=== PATIENT | female | born 1985 | race Hispanic/Latino ===

== ENCOUNTER 2017-09-23 15:30 | Inpatient (IN) | payer MEDICAID ==
[2017-09-23 15:40] VITALS: BMI 27.4
[2017-09-23] MEDS ORDERED: Sodium Chloride 0.9% 1,000 ML IV STA (15:47)
[2017-09-23 16:25] LABS: URINE BILIRUBIN MODERATE (NEGATIVE); URINE BLOOD LARGE (NEGATIVE); URINE GLUCOSE (UA) NEGATIVE (NEGATIVE); URINE LEUKOCYTE ESTERASE SMALL Leu/uL (NEGATIVE); URINE PROTEIN NEGATIVE mg/dL (<30 mg/dL)
[2017-09-23 16:27] LABS: BASO # 0.01 K/mm3 (0.0-2.0); BASO % 0.3 % (0.0-3.0); EOS # 0.2 (0.0-0.7); EOS % 6.2 % (1.5-5.0); GRAN # 1.26 (1.4-6.5); GRAN % 40.9 % (50.0-68.0); HEMOGLOBIN 13.4 g/dL (12.0-16.0); LYMPH # 1.4 (1.2-3.4); LYMPH % 45.8 % (22.0-35.0); MEAN CELL VOLUME 75.1 fl (80.0-105.0); MEAN CORPUSCULAR HEMOGLOBIN 24.5 pg (25.0-35.0); MEAN CORPUSCULAR HGB CONC 32.7 g/dl (31.0-37.0); MEAN PLATELET VOLUME 11.5 fl (7.0-11.0); MONO # 0.2 (0.1-0.6); MONO % 6.8 % (1.0-6.0); RBC 5.46 10^6/uL (3.5-6.1); RED CELL DISTRIBUTION WIDTH 14.7 % (11.5-14.5); WHITE BLOOD COUNT 3.1 10^3/ul (4.5-11.0)
[2017-09-23 16:30] LABS: URINE APPEARANCE SL CLOUDY (CLEAR); URINE COLOR DARK YELLOW (YELLOW)
[2017-09-23 16:31] LABS: INR 1.09 (0.93-1.08); PARTIAL THROMBOPLASTIN TIME 27.6 Seconds (25.1-36.5); PROTHROMBIN TIME 12.5 SECONDS (9.4-12.5)
[2017-09-23 16:32] LABS: ALB/GLOB RATIO 1.3 (1.1-1.8); ALBUMIN 4.8 g/dL (3.0-4.8); BLOOD UREA NITROGEN 10 mg/dL (7-21); CALCIUM 9.6 mg/dL (8.4-10.5); GFR AFRICAN-AMERICAN > 60; GFR NON-AFRICAN AMERICAN > 60; LIPASE 188 U/L (23-300)
[2017-09-23 16:41] LABS: URINE AMORPHOUS SEDIMENT FEW; URINE BACTERIA FEW (NEG)
[2017-09-23 16:51] LABS: ALT/SGPT 1603 U/L (7-56); AST/SGOT 1017 U/L (14-36)
--- NOTE | 2017-09-23 17:08 | ED PDOC ---
Arrival/HPI - General Chief Complaint: Abdominal Pain Time Seen by Provider: 09/23/17 15:44 Historian: Patient - History of Present Illness Narrative History of Present Illness (Text): 09/23/17 17:05 32yo female with no past medical history who present with complaint of severe RUQ abdominal pain that radiates to her right upper and lower back pain x days. States pain became worse today. Pain is associated with nausea. Also report right leg pain. States pain is constant. No relieving/exacerbating factors. Denies nausea, vomiting, diarrhea, constipation, urinary symptoms, chest pain, SOB, recent travel, sick contact, any other complaint. Past Medical History - Provider Review Nursing Documentation Reviewed: Yes - Cardiac Hx Cardiac Disorders: No - Pulmonary Hx Respiratory Disorders: No - Neurological Hx Neurological Disorder: No - HEENT Hx HEENT Disorder: No - Hematological/Oncological Hx Blood Disorders: No - Integumentary Hx Dermatological Disorder: No - Musculoskeletal/Rheumatological Hx Musculoskeletal Disorders: Yes Other/Comment: Polio - Psychiatric Hx Substance Use: No - Surgical History Hx Section: Yes - Anesthesia Hx Anesthesia: Yes Family/Social History - Physician Review Nursing Documentation Reviewed: Yes Family/Social History: Unknown Family HX Smoking Status: Smoker Currrent Status Unknown Hx Alcohol Use: No Hx Substance Use: No Allergies/Home Meds Allergies/Adverse Reactions: Allergies No Known Allergies Allergy (Verified 09/23/17 15:40) Home Medications: Home Meds Medication Instructions Recorded Confirmed No Known Home Med 09/23/17 09/23/17 Review of Systems - Physician Review All systems were reviewed & negative as marked: Yes - Review of Systems Constitutional: Normal Eyes: Normal ENT: Normal Respiratory: Normal Cardiovascular: Normal Gastrointestinal: Abdominal Pain, Nausea. absent: Constipation, Diarrhea, Vomiting, Hematochezia, Hematemesis Genitourinary Female: Normal Musculoskeletal: Back Pain Skin: Normal Neurological: Normal Endocrine: Normal Hemo/Lymphatic: Normal Psychiatric: Normal Physical Exam Vital Signs Reviewed: Yes Vital Signs Temp Pulse Resp BP Pulse Ox 09/23/17 18:50 88 18 112/73 98 09/23/17 15:31 98 F 78 18 128/79 100 Temperature: Afebrile Blood Pressure: Normal Pulse: Regular Respiratory Rate: Normal Appearance: Positive for: Well-Appearing, Non-Toxic, Comfortable Pain Distress: None Mental Status: Positive for: Alert and Oriented X 3 - Systems Exam Head: Present: Atraumatic, Normocephalic Pupils: Present: PERRL Extroacular Muscles: Present: EOMI Conjunctiva: Present: Normal Mouth: Present: Moist Mucous Membranes Neck: Present: Normal Range of Motion Respiratory/Chest: Present: Clear to Auscultation, Good Air Exchange. No: Respiratory Distress, Accessory Muscle Use Cardiovascular: Present: Regular Rate and Rhythm, Normal S1, S2. No: Murmurs Abdomen: Present: Tenderness (RUQ), Normal Bowel Sounds, Guarding (Voluntary), McBurney's Point Tender, Other (soft). No: Distention, Peritoneal Signs, Rebound, Rovsing's Sign Present Back: Present: Paraspinal Tenderness (Right parathoracic/paralumbar tenderness) . No: CVA Tenderness, Midline Tenderness, Pain with Leg Raise Upper Extremity: Present: Normal Inspection. No: Cyanosis, Edema Lower Extremity: Present: Normal Inspection. No: Edema Neurological: Present: GCS=15, CN II-XII Intact, Speech Normal Skin: Present: Warm, Dry, Normal Color. No: Rashes Psychiatric: Present: Alert, Oriented x 3, Normal Insight, Normal Concentration Medical Decision Making ED Course and Treatment: 09/23/17 19:15 Pt presented for stated history, afebrile and in mild discomfort secondary to pain. Her pain was controlled with medication in emergency department Lab was noted with leukopenia and abnormal LFT with elevate alk phos. Hepatitis panel was ordered Abdominal US was ordered to r/o cholelithiaisis Abdominal Us LIVER: Measures 16.6 cm. Normal echogenicity of the liver parenchyma. No mass. No intrahepatic bile duct dilatation. GALLBLADDER: The gallbladder is completely filled with stones. There is gallbladder wall thickening/edema. The sonographic Cardoza's sign is positive. COMMON BILE DUCT: Measures 3.4 mm. No stones. No dilatation. PANCREAS: Unremarkable as visualized. No mass. No ductal dilatation. RIGHT KIDNEY: Measures 11.2cm. Normal echogenicity. No calculus, mass, or hydronephrosis. LEFT KIDNEY: Measures 11.2cm. Normal echogenicity. No calculus or mass. There is mild hydronephrosis. SPLEEN: Normal in size and contour. No mass. AORTA: No aneurysmal dilatation. IVC: Unremarkable. OTHER FINDINGS: None. IMPRESSION: Multiple gallstones completely filling the gallbladder, wall thickening/ edema and positive sonographic Cardoza's sign in the appropriate clinical setting may represent acute calculus cholecystitis. Clinical follow-up is advised. Mild left hydronephrosis. No sonographic evidence for nephrolithiasis. Zosyn and Flagyl was ordered PT will need admission for IV abx and possible cholecystectomy Case was DW Dr. Smith and he accepted pt for admission Result and plan was DW the pt and she agreed. Chest X-Ray NAD - Lab Interpretations Lab Results: 09/23/17 15:46 09/23/17 15:46 Lab Results 09/23/17 17:17: Acetaminophen < 10.0 L 09/23/17 17:17: Alcohol, Quantitative < 10 09/23/17 15:46: Sodium 143, Potassium 4.3, Chloride 105, Carbon Dioxide 25, Anion Gap 17, BUN 10, Creatinine 0.5 L, Est GFR ( Amer) > 60, Est GFR ( Non-Af Amer) > 60, Random Glucose 101, Calcium 9.6, Magnesium 2.3 H, Total Bilirubin 2.6 H, AST 1017 H, ALT 1603 H, Alkaline Phosphatase 186 H, Total Protein 8.6 H, Albumin 4.8, Globulin 3.8, Albumin/Globulin Ratio 1.3, Lipase 188 09/23/17 15:46: Urine Color Dark yellow, Urine Appearance Sl cloudy, Urine pH 7.0, Ur Specific [place] 1.015, Urine Protein Negative, Urine Glucose (UA) Negative, Urine Ketones Negative, Urine Blood Large H, Urine Nitrate Negative, Urine Bilirubin Moderate H, Urine Urobilinogen 1.0 H, Ur Leukocyte Esterase Small H, Urine RBC 5 - 10, Urine WBC 5 - 10, Ur Epithelial Cells 3 - 4, Amorphous Sediment Few, Urine Bacteria Few 09/23/17 15:46: PT 12.5, INR 1.09 H, APTT 27.6 09/23/17 15:46: WBC 3.1 L, RBC 5.46, Hgb 13.4, Hct 41.0, MCV 75.1 L, MCH 24.5 L , MCHC 32.7, RDW 14.7 H, Plt Count 237, MPV 11.5 H, Gran % 40.9 L, Lymph % (Auto ) 45.8 H, [place] % (Auto) 6.8 H, Eos % (Auto) 6.2 H, Baso % (Auto) 0.3, Gran # 1.26 L, Lymph # (Auto) 1.4, [place] # (Auto) 0.2, Eos # (Auto) 0.2, Baso # (Auto) 0.01 - RAD Interpretation Radiology Orders: 09/23/17 15:47 ABDOMEN COMPLETE [US] Stat - Medication Orders Current Medication Orders: Metronidazole (Flagyl) 500 mg in 100 mls @ 100 mls/hr IVPB Q8 ALEX PRN Reason: Protocol Ceftriaxone Sodium (Rocephin 1 Gram Ivpb) 1 gm in 100 mls @ 100 mls/hr IVPB DAILY ALEX PRN Reason: Protocol Sodium Chloride (Sodium Chloride 0.9%) 1,000 mls @ 125 mls/hr IV .Q8H ALEX Last Admin: 09/23/17 18:15 Dose: 125 mls/hr eMAR Start Stop Document 09/23/17 18:15 [place] (Rec: 09/23/17 18:15 [place] [email or web address] Intravenous Solution Start Date 09/23/17 Start Time 18:15 Morphine Sulfate (Morphine) 2 mg IVP Q4H PRN PRN Reason: Pain, severe (8-10) Morphine Sulfate (Morphine) 1 mg IVP Q4H PRN PRN Reason: Pain, moderate (4-7) Ondansetron HCl (Zofran Inj) 4 mg IVP Q4H PRN PRN Reason: Nausea/Vomiting Pantoprazole Sodium (Protonix Inj) 40 mg IVP Q12 ALEX Discontinued Medications Diphenhydramine HCl (Benadryl) 25 mg IVP STAT STA Stop: 09/23/17 18:40 Last Admin: 09/23/17 19:13 Dose: Not Given Non-Admin Reason: Patient Refused Sodium Chloride (Sodium Chloride 0.9%) 1,000 mls @ 1,000 mls/hr IV .Q1H STA Stop: 09/23/17 16:46 Last Admin: 09/23/17 16:12 Dose: 1,000 mls/hr eMAR Start Stop Document 09/23/17 16:12 LA (Rec: 09/23/17 16:13 [email or web address] Intravenous Solution Start Date 09/23/17 Start Time 16:13 End Date 09/23/17 End time 17:13 Total Infusion Time 60 Metronidazole (Flagyl) 500 mg in 100 mls @ 100 mls/hr IVPB STAT STA PRN Reason: Protocol Stop: 09/23/17 18:40 Last Admin: 09/23/17 18:56 Dose: 100 mls/hr eMAR Start Stop Document 09/23/17 18:56 LA (Rec: 09/23/17 18:56 [email or web address] Intravenous Solution Start Date 09/23/17 Start Time 18:56 End Date 09/23/17 End time 19:56 Total Infusion Time 60 Piperacillin Sod/Tazobactam Sod (Zosyn 3.375 In Ns 100ml) 100 mls @ 200 mls/hr IVPB STAT STA PRN Reason: Protocol Stop: 09/23/17 18:10 Last Admin: 09/23/17 18:17 Dose: 200 mls/hr eMAR Start Stop Document 09/23/17 18:17 LA (Rec: 09/23/17 18:18 [place] [email or web address] Intravenous Solution Start Date 09/23/17 Start Time 18:18 End Date 09/23/17 End time 18:48 Total Infusion Time 30 Ketorolac Tromethamine (Toradol) 30 mg IVP STAT STA Stop: 09/23/17 15:48 Last Admin: 09/23/17 16:15 Dose: 30 mg AVA Pain Assessment Document 09/23/17 16:15 LA (Rec: 09/23/17 16:19 [email or web address] Pain Reassessment Is this a pain reassessment? No Sleep Is patient sleeping during reassessment? No Presence of Pain Presence of Pain Yes Pain Scale Used Pain Scale Used Numeric Location Left, Right or Bilateral Right Upper or Lower Upper Pain Location Body Site Abdomen Description Description Constant Intensity of Pain at present 7 Pain Behavior Guarding IVP Administration Document 09/23/17 16:15 LA (Rec: 09/23/17 16:19 [email or web address] Charges for Administration # of IVP Administrations 1 Re-Assess: AVA Pain Assessment Document 09/23/17 17:15 LA (Rec: 09/23/17 18:14 [place] [email or web address] Pain Reassessment Is this a pain reassessment? Yes Sleep Is patient sleeping during reassessment? No Presence of Pain Presence of Pain Yes Pain Scale Used Pain Scale Used Numeric Location Left, Right or Bilateral Right Pain Location Body Site Abdomen Description Intensity of Pain at present 6 Ondansetron HCl (Zofran Inj) 4 mg IVP STAT STA Stop: 09/23/17 15:48 Last Admin: 09/23/17 16:20 Dose: 4 mg IVP Administration Document 09/23/17 16:20 LA (Rec: 09/23/17 16:20 [place] [email or web address] Charges for Administration # of IVP Administrations 1 Disposition/Present on Arrival - Present on Arrival Any Indicators Present on Arrival: No History of DVT/PE: No History of Uncontrolled Diabetes: No Urinary Catheter: No History of Decub. Ulcer: No History Surgical Site Infection Following: None - Disposition Have Diagnosis and Disposition been Completed?: Yes Diagnosis: Acute cholecystitis, Abnormal LFTs, UTI (urinary tract infection) Disposition: HOSPITALIZED Disposition Time: 17:40 Patient Plan: Admission Patient Problems: Current Active Problems Problem Status Onset Abnormal LFTs Acute Acute cholecystitis Acute Condition: STABLE
--- NOTE | 2017-09-23 17:23 | CP.PCM.HP ---
<Madyson Rosenbaum - Last Filed: 09/23/17 19:06> History of Present Illness - History of Present Illness History of Present Illness: 32 year old of [place] descent, female with a past medical history of gastritis diagnosed 2 months by EGD who presents with 2 days of nausea, RUQ abdominal pain that has been constant for the past two days. She tried taking a pain reliever at home without any improvement in her symptoms. She denies fever, chills, diarrhea, dysuria, chest pain, or pruritus. She states the pain is 101/ 10 in severity. In the past 3-4 years she had similar episodes that did not last longer than 5 minutes; however, this time it has been constant. She is from [place] and is visiting her mother. She reports taking lansoprazole for the past two months and stopped a few days. She denies any surgeries aside from 3 C-sections. She is a homemaker; denies alcohol, tobacco, or illicit drug use. She cannot recall the name of the pain medication she took prior to admission. Otherwise, 12 point review of systems in negative. PMH: EGD 2 months ago showing gastritis (patient has picture of the images on her phone) PSH: As above Allergies: Denies Social: as Above PMD: Denies Present on Admission - Present on Admission Any Indicators Present on Admission: No Review of Systems - Review of Systems All systems: reviewed and no additional remarkable complaints except (as per HPI ) Past Patient History - Past Social History Smoking Status: Smoker Currrent Status Unknown - CARDIAC Hx Cardiac Disorders: No - PULMONARY Hx Respiratory Disorders: No - NEUROLOGICAL Hx Neurological Disorder: No - HEENT Hx HEENT Problems: No - HEMATOLOGICAL/ONCOLOGICAL Hx Blood Disorders: No - INTEGUMENTARY Hx Dermatological Problems: No - MUSCULOSKELETAL/RHEUMATOLOGICAL Hx Musculoskeletal Disorders: Yes Other/Comment: Polio - PSYCHIATRIC Hx Substance Use: No - SURGICAL HISTORY Hx Section: Yes - ANESTHESIA Hx Anesthesia: Yes Meds Allergies/Adverse Reactions: Allergies Allergy/AdvReac Type Severity Reaction Status Date / Time No Known Allergies Allergy Verified 09/23/17 21:20 Physical Exam - Constitutional Appears: Non-toxic - Head Exam Head Exam: ATRAUMATIC, NORMOCEPHALIC - Eye Exam Eye Exam: EOMI, Normal appearance - ENT Exam ENT Exam: Mucous Membranes Moist - Neck Exam Neck exam: Positive for: Normal Inspection. Negative for: Thyromegaly - Respiratory Exam Respiratory Exam: Clear to Auscultation Bilateral, NORMAL BREATHING PATTERN - Cardiovascular Exam Cardiovascular Exam: RRR, +S1, +S2 Results - Vital Signs Recent Vital Signs: Last Vital Signs Temp 98 F 09/23/17 15:31 Pulse 78 09/23/17 15:31 Resp 18 09/23/17 15:31 BP 128/79 09/23/17 15:31 Pulse Ox 100 09/23/17 15:31 - Labs Result Diagrams: 09/23/17 15:46 09/23/17 15:46 Labs: Laboratory Results - last 24 hr 09/23/17 09/23/17 09/23/17 15:46 15:46 15:46 WBC 3.1 L RBC 5.46 Hgb 13.4 Hct 41.0 MCV 75.1 L MCH 24.5 L MCHC 32.7 RDW 14.7 H Plt Count 237 MPV 11.5 H Gran % 40.9 L Lymph % (Auto) 45.8 H [place] % (Auto) 6.8 H Eos % (Auto) 6.2 H Baso % (Auto) 0.3 Gran # 1.26 L Lymph # (Auto) 1.4 [place] # (Auto) 0.2 Eos # (Auto) 0.2 Baso # (Auto) 0.01 PT 12.5 INR 1.09 H APTT 27.6 Sodium Potassium Chloride Carbon Dioxide Anion Gap BUN Creatinine Est GFR ( Amer) Est GFR (Non-Af Amer) Random Glucose Calcium Magnesium Total Bilirubin AST ALT Alkaline Phosphatase Total Protein Albumin Globulin Albumin/Globulin Ratio Lipase Urine Color Dark yellow Urine Appearance Sl cloudy Urine pH 7.0 Ur Specific [place] 1.015 Urine Protein Negative Urine Glucose (UA) Negative Urine Ketones Negative Urine Blood Large H Urine Nitrate Negative Urine Bilirubin Moderate H Urine Urobilinogen 1.0 H Ur Leukocyte Esterase Small H Urine RBC 5 - 10 Urine WBC 5 - 10 Ur Epithelial Cells 3 - 4 Amorphous Sediment Few Urine Bacteria Few 09/23/17 15:46 WBC RBC Hgb Hct MCV MCH MCHC RDW Plt Count MPV Gran % Lymph % (Auto) [place] % (Auto) Eos % (Auto) Baso % (Auto) Gran # Lymph # (Auto) [place] # (Auto) Eos # (Auto) Baso # (Auto) PT INR APTT Sodium 143 Potassium 4.3 Chloride 105 Carbon Dioxide 25 Anion Gap 17 BUN 10 Creatinine 0.5 L Est GFR ( Amer) > 60 Est GFR (Non-Af Amer) > 60 Random Glucose 101 Calcium 9.6 Magnesium 2.3 H Total Bilirubin 2.6 H AST 1017 H ALT 1603 H Alkaline Phosphatase 186 H Total Protein 8.6 H Albumin 4.8 Globulin 3.8 Albumin/Globulin Ratio 1.3 Lipase 188 Urine Color Urine Appearance Urine pH Ur Specific [place] Urine Protein Urine Glucose (UA) Urine Ketones Urine Blood Urine Nitrate Urine Bilirubin Urine Urobilinogen Ur Leukocyte Esterase Urine RBC Urine WBC Ur Epithelial Cells Amorphous Sediment Urine Bacteria Assessment & Plan - Assessment and Plan (Free Text) Assessment: 32 year old of [place] descent, female with a past medical history of gastritis diagnosed 2 months by EGD who presents with 2 days of nausea, RUQ abdominal pain that has been constant for the past two days. 1) Elevated LFTs and RUQ pain - Multiple gallstones completely filling the gallbladder, wall thickening/ edema and positive sonographic Cardoza's sign in the appropriate clinical setting may represent acute calculus cholecystitis. Clinical follow-up is advised. Mild left hydronephrosis. No sonographic evidence for nephrolithiasis. - Ceftriaxone 1 gm q24h ALEX - Metronidazole 500 q8h ALEX - Morphine 2 mg q4h PRN - Morphine 1 mg q4h PRN - Zofran 4 mg q4h PRN - GI consulted - General Surgery Consulted - NPO after midnight except for meds - Acetaminophen level - Hepatitis panel - NPO past midnight - NS 125 mls/hr 2) Gastritis - Protonix 40 mg IVP BID 3) Pre-operative assessment - EKG - Chest X-ray 4) DVT prophylaxis - SCD Casr reviewed with Dr. Pedro Patient to follow up with PMD in [place] upon discharge - Date & Time Date: 09/23/17 Time: 19:18 <Mili Pedro - Last Filed: 09/24/17 18:35> Results - Vital Signs Recent Vital Signs: Last Vital Signs Temp 98.0 F 09/24/17 17:50 Pulse 81 09/24/17 17:50 Resp 19 09/24/17 17:50 BP 103/54 L 09/24/17 17:50 Pulse Ox 100 09/24/17 17:50 - Labs Result Diagrams: 09/24/17 06:00 09/24/17 06:00 Labs: Laboratory Results - last 24 hr 09/23/17 09/24/17 09/24/17 18:45 06:00 06:00 WBC 2.8 L* RBC 4.67 Hgb 11.5 L Hct 35.6 L MCV 76.2 L MCH 24.6 L MCHC 32.3 RDW 14.9 H Plt Count 189 MPV 11.5 H Gran % 32.8 L Lymph % (Auto) 49.8 H [place] % (Auto) 8.9 H Eos % (Auto) 7.8 H Baso % (Auto) 0.7 Gran # 0.92 L Lymph # (Auto) 1.4 [place] # (Auto) 0.3 Eos # (Auto) 0.2 Baso # (Auto) 0.02 Sodium 143 Potassium 3.9 Chloride 112 H Carbon Dioxide 23 Anion Gap 12 BUN 7 Creatinine 0.5 L Est GFR ( Amer) > 60 Est GFR (Non-Af Amer) > 60 Random Glucose 93 Calcium 8.0 L Total Bilirubin 2.1 H AST 481 H D ALT 1090 H Alkaline Phosphatase 144 H D Total Protein 6.5 Albumin 3.4 Globulin 3.2 Albumin/Globulin Ratio 1.1 Hepatitis A IgM Ab Negative Hep Bs Antigen Negative Hep B Core IgM Ab Negative Hepatitis C Antibody Negative Attending/Attestation - Attestation I have personally seen and examined this patient.: Yes I have fully participated in the care of the patient.: Yes I have reviewed all pertinent clinical information: Yes Notes (Text): 09/24/17 18:34 Attending note; Patient seen and examined with resident in ER. Patient's mother by the bedside. Patient is a 32-year-old female with a past medical history of gastritis is admitted with acute right upper quadrant pain for the past 2 days. Patient significantly tender in the right upper quadrant on clinical examination. Abdominal ultrasound showed multiple gallstones with thickening of the gallbladder wall. Normal CBD. Elevated LFTs. Will rule out CBD stone. GI and surgery evaluation requested. Nothing by mouth. Started on IV fluids. Pain management with morphine. Started on IV Rocephin and Flagyl. Monitor LFTs closely. Patient is visiting from [place]. Upon discharge the patient will follow-up with PMD in [place].
--- NOTE | 2017-09-23 17:26 | US ---
HISTORY: RUQ pain COMPARISON: None. TECHNIQUE: Sonographic evaluation of the abdomen. FINDINGS: LIVER: Measures 16.6 cm. Normal echogenicity of the liver parenchyma. No mass. No intrahepatic bile duct dilatation. GALLBLADDER: The gallbladder is completely filled with stones. There is gallbladder wall thickening/edema. The sonographic Cardoza's sign is positive. COMMON BILE DUCT: Measures 3.4 mm. No stones. No dilatation. PANCREAS: Unremarkable as visualized. No mass. No ductal dilatation. RIGHT KIDNEY: Measures 11.2cm. Normal echogenicity. No calculus, mass, or hydronephrosis. LEFT KIDNEY: Measures 11.2cm. Normal echogenicity. No calculus or mass. There is mild hydronephrosis. SPLEEN: Normal in size and contour. No mass. AORTA: No aneurysmal dilatation. IVC: Unremarkable. OTHER FINDINGS: None. IMPRESSION: Multiple gallstones completely filling the gallbladder, wall thickening/ edema and positive sonographic Cardoza's sign in the appropriate clinical setting may represent acute calculus cholecystitis. Clinical follow-up is advised. Mild left hydronephrosis. No sonographic evidence for nephrolithiasis.
[2017-09-23] MEDS ORDERED: metroNIDAZOLE IV 500 mg/100 ml 500 MG/100 ML BAG IVPB STA (17:41)
[2017-09-23] MEDS ORDERED: Piperacillin/Tazobact 3.375 gm 100 ML IVPB STA (17:41)
[2017-09-23] MEDS ORDERED: Morphine 2 mg/2 mL syringe IVP PRN (18:02)
[2017-09-23] MEDS ORDERED: Morphine 2 mg/ml ISec IVP PRN (18:03)
[2017-09-23] MEDS: Sodium Chloride 0.9% 1,000 ML IV SCH (18:15)
[2017-09-23] MEDS ORDERED: DiphenhydrAMINE 50 mg/ml Inj IVP STA (18:39)
[2017-09-23] MEDS: metroNIDAZOLE IV 500 mg/100 ml 500 MG/100 ML BAG IVPB SCH (22:17)
[2017-09-23] MEDS ORDERED: Pneumococcal 23-Valent Vaccine IM ONE (22:47)
--- NOTE | 2017-09-23 23:07 | CP.PCM.CON ---
History of Present Illness - History of Present Illness History of Present Illness: General surgery consult note for Dr. Shankar Herron, PGY-1 Pt S & E at bedside at 9:30pm 32F w/PMH sig for gastritis consulted for symptomatic gallstone disease. Pt reports onset of RUQ abdominal pain x 2 days. Pain is intermittent, severe, "crampy", radiates to back and epigastric area. Pain onset after eating pizza. Tried Advil at home without relief. Admits to nausea, chills, constipation, some dysuria, pain with deep inspiration, headache, dizziness, right leg cramping, avoiding eating due to pain. Denies emesis, fevers, diarrhea, hematuria, hematochezia, numbness or tingling of hands or feet, other complaints. In ED- Ab U/S w/gallbladder filled completely with stones; gallbladder wall thickening/edema, positive Cardoza's sign. CBD 3.4, no stone or dilatation. T bili 2.6, AST & ALT 1017, 1603. ALP 186. Afebrile, no leukocytosis. PMH: Gastritis on PPI, hx polio PSH: Multiple right leg surgeries, x 3 All: Zosyn SH: Visiting from [place], denies tobacco, ETOH or illicit drug use FH: Denies gallbladder disease or CA Review of Systems - Review of Systems All systems: reviewed and no additional remarkable complaints except - Constitutional Constitutional: Chills, Headache. absent: Fever, Weakness - EENT Eyes: absent: Change in Vision Ears: Dizziness Nose/Mouth/Throat: absent: Sore Throat - Cardiovascular Cardiovascular: absent: Chest Pain, Leg Edema, Palpitations - Respiratory Respiratory: absent: Cough - Gastrointestinal Gastrointestinal: Abdominal Pain, Change in Bowel Habits, Constipation, Nausea. absent: Cramping, Diarrhea, Dyspepsia, Dysphagia, Hematemesis, Hematochezia, Vomiting - Genitourinary Genitourinary: absent: Change in Urinary Stream, Flank Pain, Hematuria - Musculoskeletal Musculoskeletal: Back Pain (from front). absent: Numbness, Tingling - Integumentary Integumentary: absent: New Lesions, Rash - Neurological Neurological: Headaches - Psychiatric Psychiatric: Change in Appetite (decreased) Past Patient History - Past Social History Smoking Status: Never Smoked - CARDIAC Hx Cardiac Disorders: No - PULMONARY Hx Respiratory Disorders: No - NEUROLOGICAL Hx Neurological Disorder: No - HEENT Hx HEENT Problems: No - HEMATOLOGICAL/ONCOLOGICAL Hx Blood Disorders: No - INTEGUMENTARY Hx Dermatological Problems: No - MUSCULOSKELETAL/RHEUMATOLOGICAL Hx Musculoskeletal Disorders: Yes Hx Falls: No Hx Unsteady Gait: Yes Other/Comment: Polio - GASTROINTESTINAL Hx Gastrointestinal Disorders: Yes Hx Gall Bladder Disease: Yes (CHOLECYSTITIS) - GENITOURINARY/GYNECOLOGICAL Hx Genitourinary Disorders: Yes (3 C SECTIONS) Hx Urinary Tract Infection: Yes - PSYCHIATRIC Hx Substance Use: No - SURGICAL HISTORY Hx Surgeries: Yes (RIGHT LEG SURGERY -POLIO,3 C SECTIONS) - ANESTHESIA Hx Anesthesia: Yes Meds Allergies/Adverse Reactions: Allergies Allergy/AdvReac Type Severity Reaction Status Date / Time No Known Allergies Allergy Verified 09/23/17 21:20 - Medications Medications: Current Medications Metronidazole (Flagyl) 500 mg in 100 mls @ 100 mls/hr IVPB Q8 [facility] PRN Reason: Protocol Last Admin: 09/23/17 22:17 Dose: Not Given Ceftriaxone Sodium (Rocephin 1 Gram Ivpb) 1 gm in 100 mls @ 100 mls/hr IVPB DAILY [facility] PRN Reason: Protocol Sodium Chloride (Sodium Chloride 0.9%) 1,000 mls @ 125 mls/hr IV .Q8H [facility] Last Admin: 09/23/17 18:15 Dose: 125 mls/hr Morphine Sulfate (Morphine) 2 mg IVP Q4H PRN PRN Reason: Pain, severe (8-10) Morphine Sulfate (Morphine) 1 mg IVP Q4H PRN PRN Reason: Pain, moderate (4-7) Ondansetron HCl (Zofran Inj) 4 mg IVP Q4H PRN PRN Reason: Nausea/Vomiting Pantoprazole Sodium (Protonix Inj) 40 mg IVP Q12 [facility] Last Admin: 09/23/17 22:17 Dose: 40 mg Physical Exam - Constitutional Appears: Non-toxic, No Acute Distress - Head Exam Head Exam: ATRAUMATIC, NORMAL INSPECTION, NORMOCEPHALIC - Eye Exam Eye Exam: EOMI, Normal appearance - ENT Exam ENT Exam: Mucous Membranes Moist, Normal Exam - Neck Exam Neck exam: Positive for: Full Rom, Normal Inspection - Respiratory Exam Respiratory Exam: Clear to Auscultation Bilateral, NORMAL BREATHING PATTERN - Cardiovascular Exam Cardiovascular Exam: REGULAR RHYTHM, +S1, +S2 - GI/Abdominal Exam GI & Abdominal Exam: Guarding (RUQ), Hyperactive Bowel Sounds, Soft, Tenderness (RUQ, epigastric area). absent: Distended, Firm, Hernia, Rebound, Rigid - Rectal Exam Rectal Exam: Deferred - Extremities Exam Extremities exam: Positive for: normal inspection. Negative for: pedal edema, tenderness - Back Exam Back exam: NORMAL INSPECTION, tenderness (right mid back) - Neurological Exam Neurological exam: Alert, CN II-XII Intact, Oriented x3 - Psychiatric Exam Psychiatric exam: Normal Affect, Normal Mood - Skin Skin Exam: Dry, Intact, Normal Color, Warm Results - Vital Signs Recent Vital Signs: Last Vital Signs Temp 98 F 09/23/17 22:30 Pulse 80 09/23/17 22:30 Resp 18 09/23/17 22:30 BP 113/65 09/23/17 22:30 Pulse Ox 100 09/23/17 19:50 - Labs Result Diagrams: 09/23/17 15:46 09/23/17 15:46 Assessment & Plan - Assessment and Plan (Free Text) Assessment: 32F w/PMH sig for gastritis consulted for symptomatic cholelithiasis Plan: Pain control Anti-emetic IV Abx CLD for now NPO after MN FU MRCP GI followiing Possible OR Thursday Further recs pending MRCP findings DW attending Germaine, PGY-1 - Date & Time Date: 09/23/17 Time: 21:30
[2017-09-24] MEDS: Sodium Chloride 0.9% 1,000 ML IV SCH ×2 (03:55→23:00)
[2017-09-24] MEDS: metroNIDAZOLE IV 500 mg/100 ml 500 MG/100 ML BAG IVPB SCH ×3 (05:19→21:59)
[2017-09-24 06:24] LABS: BASO # 0.02 K/mm3 (0.0-2.0); BASO % 0.7 % (0.0-3.0); EOS # 0.2 (0.0-0.7); EOS % 7.8 % (1.5-5.0); GRAN # 0.92 (1.4-6.5); GRAN % 32.8 % (50.0-68.0); HEMOGLOBIN 11.5 g/dL (12.0-16.0); LYMPH # 1.4 (1.2-3.4); LYMPH % 49.8 % (22.0-35.0); MEAN CELL VOLUME 76.2 fl (80.0-105.0); MEAN CORPUSCULAR HEMOGLOBIN 24.6 pg (25.0-35.0); MEAN CORPUSCULAR HGB CONC 32.3 g/dl (31.0-37.0); MEAN PLATELET VOLUME 11.5 fl (7.0-11.0); MONO # 0.3 (0.1-0.6); MONO % 8.9 % (1.0-6.0); RBC 4.67 10^6/uL (3.5-6.1); RED CELL DISTRIBUTION WIDTH 14.9 % (11.5-14.5)
[2017-09-24 06:56] LABS: WHITE BLOOD COUNT 2.8 10^3/ul (4.5-11.0)
[2017-09-24 07:19] LABS: ALB/GLOB RATIO 1.1 (1.1-1.8); ALBUMIN 3.4 g/dL (3.0-4.8); ALT/SGPT 1090 U/L (7-56); AST/SGOT 481 U/L (14-36); BLOOD UREA NITROGEN 7 mg/dL (7-21); GFR AFRICAN-AMERICAN > 60; GFR NON-AFRICAN AMERICAN > 60
--- NOTE | 2017-09-24 08:30 | CP.PCM.PN ---
<Madyson Rosenbaum - Last Filed: 09/24/17 15:36> Subjective - Date & Time of Evaluation Date of Evaluation: 09/24/17 Time of Evaluation: 08:30 - Subjective Subjective: Madyson Rosenbaum PGY-1: Hospitalist Service Patient seen and examined at bedside. Patient reports 2/10 abdominal pain in RUQ. Patient asks when she can eat. She reports her urine is darker in color, and we told her that is normal in her case. She denies any nausea, vomiting, diarrhea, fever, or chills. Nurse reports no adverse events noted overnight. Objective - Vital Signs/Intake and Output Vital Signs (last 24 hours): Temp Pulse Resp BP Pulse Ox 98 F 80 18 113/65 100 09/23/17 22:30 09/23/17 22:30 09/23/17 22:30 09/23/17 22:30 09/23/17 19:50 Intake and Output: 09/24/17 09/24/17 06:59 18:59 Intake Total 0 Balance 0 - Medications Medications: Current Medications Metronidazole (Flagyl) 500 mg in 100 mls @ 100 mls/hr IVPB Q8 [facility] PRN Reason: Protocol Last Admin: 09/24/17 05:19 Dose: 100 mls/hr Ceftriaxone Sodium (Rocephin 1 Gram Ivpb) 1 gm in 100 mls @ 100 mls/hr IVPB DAILY [facility] PRN Reason: Protocol Sodium Chloride (Sodium Chloride 0.9%) 1,000 mls @ 125 mls/hr IV .Q8H [facility] Last Admin: 09/24/17 03:55 Dose: 125 mls/hr Morphine Sulfate (Morphine) 2 mg IVP Q4H [facility]N PRN Reason: Pain, severe (8-10) Morphine Sulfate (Morphine) 1 mg IVP Q4H PRN PRN Reason: Pain, moderate (4-7) Ondansetron HCl (Zofran Inj) 4 mg IVP Q4H PRN PRN Reason: Nausea/Vomiting Pantoprazole Sodium (Protonix Inj) 40 mg IVP Q12 [facility] Last Admin: 09/23/17 22:17 Dose: 40 mg - Labs Labs: 09/24/17 06:00 09/24/17 06:00 PT 12.5 SECONDS (9.4-12.5) 09/23/17 15:46 INR 1.09 (0.93-1.08) H 09/23/17 15:46 APTT 27.6 Seconds (25.1-36.5) 09/23/17 15:46 - Constitutional Appears: Well, Non-toxic - Head Exam Head Exam: ATRAUMATIC, NORMOCEPHALIC - Eye Exam Eye Exam: EOMI, Normal appearance - ENT Exam ENT Exam: Mucous Membranes Moist - Neck Exam Neck Exam: Normal Inspection - Respiratory Exam Respiratory Exam: Clear to Ausculation Bilateral, NORMAL BREATHING PATTERN. absent: Accessory Muscle Use - Cardiovascular Exam Cardiovascular Exam: RRR, +S1, +S2 - GI/Abdominal Exam GI & Abdominal Exam: Soft, Normal Bowel Sounds. absent: Guarding Additional comments: tenderness to palpation in RUQ - Extremities Exam Extremities Exam: Normal Inspection. absent: Calf Tenderness - Neurological Exam Neurological Exam: Alert, Awake, Oriented x3 Neuro motor strength exam: Left Upper Extremity: 5, Right Upper Extremity: 5, Left Lower Extremity: 5, Right Lower Extremity: 5 - Psychiatric Exam Psychiatric exam: Normal Affect, Normal Mood - Skin Skin Exam: Dry, Intact, Normal Color, Warm Assessment and Plan - Assessment and Plan (Free Text) Assessment: 32 year old of [place] descent, female with a past medical history of gastritis diagnosed 2 months by EGD who presents with 2 days of nausea, RUQ abdominal pain that has been constant for the past two days. 1) Elevated LFTs and RUQ pain - Multiple gallstones completely filling the gallbladder, wall thickening/ edema and positive sonographic Cardoza's sign in the appropriate clinical setting may represent acute calculus cholecystitis. Clinical follow-up is advised. Mild left hydronephrosis. No sonographic evidence for nephrolithiasis. - Ceftriaxone 1 gm q24h [facility] - Metronidazole 500 q8h [facility] - Morphine 2 mg q4h PRN - Morphine 1 mg q4h PRN - Zofran 4 mg q4h PRN - GI consulted, recommendations appreciated - General Surgery Consulted, possible OR Thursday for laparoscopic cholecystectomy - Acetaminophen level - Hepatitis panel - NPO past midnight - NS 125 mls/hr - MRCP performed, interpretation pending - LFTs trending down 2) Gastritis - Protonix 40 mg IVP daily 3) Pre-operative assessment - EKG NSR - Chest X-ray shows no active disease 4) DVT/GI prophylaxis - SCD -Protonix 40 mg IVP Case reviewed with Dr. Pedro Patient to follow up with PMD in [place] upon discharge <Mili Pedro - Last Filed: 09/24/17 18:38> Objective - Vital Signs/Intake and Output Vital Signs (last 24 hours): Temp Pulse Resp BP Pulse Ox 98.0 F 81 19 103/54 L 100 09/24/17 17:50 09/24/17 17:50 09/24/17 17:50 09/24/17 17:50 09/24/17 17:50 Intake and Output: 09/24/17 09/24/17 06:59 18:59 Intake Total 0 0 Balance 0 0 - Medications Medications: Current Medications Metronidazole (Flagyl) 500 mg in 100 mls @ 100 mls/hr IVPB Q8 [facility] PRN Reason: Protocol Last Admin: 09/24/17 14:30 Dose: Not Given Ceftriaxone Sodium (Rocephin 1 Gram Ivpb) 1 gm in 100 mls @ 100 mls/hr IVPB DAILY [facility] PRN Reason: Protocol Last Admin: 09/24/17 09:11 Dose: 100 mls/hr Sodium Chloride (Sodium Chloride 0.9%) 1,000 mls @ 125 mls/hr IV .Q8H [facility] Last Admin: 09/24/17 03:55 Dose: 125 mls/hr Morphine Sulfate (Morphine) 2 mg IVP Q4H PRN PRN Reason: Pain, severe (8-10) Morphine Sulfate (Morphine) 1 mg IVP Q4H PRN PRN Reason: Pain, moderate (4-7) Ondansetron HCl (Zofran Inj) 4 mg IVP Q4H PRN PRN Reason: Nausea/Vomiting Pantoprazole Sodium (Protonix Inj) 40 mg IVP DAILY [facility] - Labs Labs: 09/24/17 06:00 09/24/17 06:00 PT 12.5 SECONDS (9.4-12.5) 09/23/17 15:46 INR 1.09 (0.93-1.08) H 09/23/17 15:46 APTT 27.6 Seconds (25.1-36.5) 09/23/17 15:46 Attending/Attestation - Attestation I have personally seen and examined this patient.: Yes I have fully participated in the care of the patient.: Yes I have reviewed all pertinent clinical information, including history, physical exam and plan: Yes Notes (Text): 09/24/17 18:36 Attending note; Patient seen and examined with resident. Patient is a 32-year-old female with a past medical history of gastritis is admitted with acute cholecystitis. MRCP is negative for CBD stone. GI evaluation appreciated. Case discussed with surgery in detail. Possible laparoscopic cholecystectomy in a.m.. Elevated LFTs. LFTs improving. on IV fluids. Pain management with morphine. Started on IV Rocephin and Flagyl. Follow-up with surgery closely.
--- NOTE | 2017-09-24 08:44 | RAD ---
HISTORY: pre-operative COMPARISON: No prior. FINDINGS: LUNGS: No active pulmonary disease. PLEURA: No significant pleural effusion identified, no pneumothorax apparent. CARDIOVASCULAR: Normal. OSSEOUS STRUCTURES: No significant abnormalities. VISUALIZED UPPER ABDOMEN: Normal. OTHER FINDINGS: None. IMPRESSION: No active disease.
--- NOTE | 2017-09-24 09:12 | CP.PCM.PN ---
Subjective - Date & Time of Evaluation Date of Evaluation: 09/24/17 Time of Evaluation: 07:30 - Subjective Subjective: General Surgery Note for Dr. Thompson Patient seen and examined at bedside. No acute event overnight. Patient still complaining of RUQ abdominal pain. She is NPO for MRCP. Denies fever/chills or nausea/vomiting. Objective - Vital Signs/Intake and Output Vital Signs (last 24 hours): Temp Pulse Resp BP Pulse Ox 97.5 F L 76 20 103/64 95 09/24/17 09:05 09/24/17 09:05 09/24/17 09:05 09/24/17 09:05 09/24/17 09:05 Intake and Output: 09/24/17 09/24/17 06:59 18:59 Intake Total 0 Balance 0 - Medications Medications: Current Medications Metronidazole (Flagyl) 500 mg in 100 mls @ 100 mls/hr IVPB Q8 [facility] PRN Reason: Protocol Last Admin: 09/24/17 05:19 Dose: 100 mls/hr Ceftriaxone Sodium (Rocephin 1 Gram Ivpb) 1 gm in 100 mls @ 100 mls/hr IVPB DAILY [facility] PRN Reason: Protocol Sodium Chloride (Sodium Chloride 0.9%) 1,000 mls @ 125 mls/hr IV .Q8H [facility] Last Admin: 09/24/17 03:55 Dose: 125 mls/hr Morphine Sulfate (Morphine) 2 mg IVP Q4H PRN PRN Reason: Pain, severe (8-10) Morphine Sulfate (Morphine) 1 mg IVP Q4H PRN PRN Reason: Pain, moderate (4-7) Ondansetron HCl (Zofran Inj) 4 mg IVP Q4H PRN PRN Reason: Nausea/Vomiting Pantoprazole Sodium (Protonix Inj) 40 mg IVP Q12 [facility] Last Admin: 09/23/17 22:17 Dose: 40 mg - Labs Labs: 09/24/17 06:00 09/24/17 06:00 PT 12.5 SECONDS (9.4-12.5) 09/23/17 15:46 INR 1.09 (0.93-1.08) H 09/23/17 15:46 APTT 27.6 Seconds (25.1-36.5) 09/23/17 15:46 - Constitutional Appears: No Acute Distress - Head Exam Head Exam: ATRAUMATIC, NORMOCEPHALIC - Eye Exam Eye Exam: EOMI, Normal appearance Pupil Exam: PERRL - ENT Exam ENT Exam: Mucous Membranes Moist - Respiratory Exam Respiratory Exam: NORMAL BREATHING PATTERN - Cardiovascular Exam Cardiovascular Exam: REGULAR RHYTHM - GI/Abdominal Exam GI & Abdominal Exam: Soft, Tenderness (RUQ/epigastric), Normal Bowel Sounds. absent: Distended, Firm, Guarding, Rigid, Mass, Rebound - Extremities Exam Extremities Exam: Normal Capillary Refill - Back Exam Back Exam: absent: CVA tenderness (L), CVA tenderness (R) - Neurological Exam Neurological Exam: Alert, Awake, Oriented x3 - Psychiatric Exam Psychiatric exam: Normal Affect, Normal Mood - Skin Skin Exam: Dry, Intact, Normal Color, Warm Assessment and Plan - Assessment and Plan (Free Text) Assessment: 32F with PMH that includes gastritis consulted for symptomatic cholelithiasis Plan: NPO IV Fluids Analgesics/Anti-emetics PRN IV Abx f/u MRCP GI recommendations are appreciated Possible OR Thursday for laparoscopic cholecystectomy Further recommendations as per Dr. Jay Blackwood PGY1
[2017-09-24] MEDS ORDERED: Enoxaparin 40 mg Syringe SC SCH (10:00)
[2017-09-24] MEDS ORDERED: cefTRIAXone 1 gm 1 GM/100 ML BAG IVPB SCH (10:00)
[2017-09-24 13:06] LABS: HEPATITIS B SURFACE AG Negative (NEGATIVE)
[2017-09-24 13:12] LABS: HEPATITIS A IGM NEGATIVE (NEGATIVE); HEPATITIS B CORE AB NEGATIVE (NEGATIVE)
[2017-09-24 13:24] LABS: HEPATITIS C ANTIBODY NEGATIVE (NEGATIVE)
--- NOTE | 2017-09-24 15:33 | CP.PCM.PN ---
Subjective - Date & Time of Evaluation Date of Evaluation: 09/24/17 Time of Evaluation: 13:40 - Subjective Subjective: PGY5 GI Fellow Consult Note Patient is a 32yo female with no significant past medical history who presented to the ED with 3 days of abdominal pain. Patient has notice intermittent, mild epigastric and RUQ abdominal pain for the last several months, worsening in the three days prior to admission. On the day prior to arrival, she developed severe RUQ stabbing pain after eating pizza which radiated to her epigastric region and chest. She tried taking Advil without much relief. She has had no fever, chills, nausea, vomiting, change in bowel habits. Recently had endoscopic evaluation in [place] (where she lives) and endorses a diagnosis of gastritis. She has avoid PO intake in the last few days to avoid worsening pain. On arrival to the ED, she was noted to have Cardoza's sign on examination and U/S shows gallbaldder edema/thickening with significant cholelithiasis. CBD was unremarkable, however LFTs were elevated. Currently, pain is much improved. 12 system ROS performed and negative except where stated. PMHx: Denies PSHx: FHx: Mother - DM, dyslipidemia Social: Denies tobacco, EtOH or illicit drug use Endo: EGD in the last month in [place] Objective - Vital Signs/Intake and Output Vital Signs (last 24 hours): Temp Pulse Resp BP Pulse Ox 97.5 F L 76 20 103/64 95 09/24/17 09:05 09/24/17 09:05 09/24/17 09:05 09/24/17 09:05 09/24/17 09:05 Intake and Output: 09/24/17 09/24/17 06:59 18:59 Intake Total 0 0 Balance 0 0 - Medications Medications: Current Medications Metronidazole (Flagyl) 500 mg in 100 mls @ 100 mls/hr IVPB Q8 [facility] PRN Reason: Protocol Last Admin: 09/24/17 05:19 Dose: 100 mls/hr Ceftriaxone Sodium (Rocephin 1 Gram Ivpb) 1 gm in 100 mls @ 100 mls/hr IVPB DAILY [facility] PRN Reason: Protocol Last Admin: 09/24/17 09:11 Dose: 100 mls/hr Sodium Chloride (Sodium Chloride 0.9%) 1,000 mls @ 125 mls/hr IV .Q8H [facility] Last Admin: 09/24/17 03:55 Dose: 125 mls/hr Morphine Sulfate (Morphine) 2 mg IVP Q4H [facility]N PRN Reason: Pain, severe (8-10) Morphine Sulfate (Morphine) 1 mg IVP Q4H [facility]N PRN Reason: Pain, moderate (4-7) Ondansetron HCl (Zofran Inj) 4 mg IVP Q4H PRN PRN Reason: Nausea/Vomiting Pantoprazole Sodium (Protonix Inj) 40 mg IVP Q12 [facility] Last Admin: 09/24/17 09:11 Dose: 40 mg - Labs Labs: 09/24/17 06:00 09/24/17 06:00 PT 12.5 SECONDS (9.4-12.5) 09/23/17 15:46 INR 1.09 (0.93-1.08) H 09/23/17 15:46 APTT 27.6 Seconds (25.1-36.5) 09/23/17 15:46
--- NOTE | 2017-09-24 15:37 | CP.PCM.CON ---
<Hardeep Priest - Last Filed: 09/24/17 15:59> History of Present Illness - History of Present Illness History of Present Illness: PGY5 GI Fellow Consult Note Patient is a 32yo female with no significant past medical history who presented to the ED with 3 days of abdominal pain. Patient has notice intermittent, mild epigastric and RUQ abdominal pain for the last several months, worsening in the three days prior to admission. On the day prior to arrival, she developed severe RUQ stabbing pain after eating pizza which radiated to her epigastric region and chest. She tried taking Advil without much relief. She has had no fever, chills, nausea, vomiting, change in bowel habits. Recently had endoscopic evaluation in [place] (where she lives) and endorses a diagnosis of gastritis. She has avoid PO intake in the last few days to avoid worsening pain. On arrival to the ED, she was noted to have Cardoza's sign on examination and U/S shows gallbaldder edema/thickening with significant cholelithiasis. CBD was unremarkable, however LFTs were elevated. Currently, pain is much improved. 12 system ROS performed and negative except where stated. PMHx: Denies PSHx: FHx: Mother - DM, dyslipidemia Social: Denies tobacco, EtOH or illicit drug use Endo: EGD in the last month in [place] Past Patient History - Past Social History Smoking Status: Never Smoked - CARDIAC Hx Cardiac Disorders: No - PULMONARY Hx Respiratory Disorders: No - NEUROLOGICAL Hx Neurological Disorder: No - HEENT Hx HEENT Problems: No - HEMATOLOGICAL/ONCOLOGICAL Hx Blood Disorders: No - INTEGUMENTARY Hx Dermatological Problems: No - MUSCULOSKELETAL/RHEUMATOLOGICAL Hx Musculoskeletal Disorders: Yes Hx Falls: No Hx Unsteady Gait: Yes Other/Comment: Polio - GASTROINTESTINAL Hx Gastrointestinal Disorders: Yes Hx Gall Bladder Disease: Yes (CHOLECYSTITIS) - GENITOURINARY/GYNECOLOGICAL Hx Genitourinary Disorders: Yes (3 C SECTIONS) Hx Urinary Tract Infection: Yes - PSYCHIATRIC Hx Substance Use: No - SURGICAL HISTORY Hx Surgeries: Yes (RIGHT LEG SURGERY -POLIO,3 C SECTIONS) - ANESTHESIA Hx Anesthesia: Yes Meds Allergies/Adverse Reactions: Allergies Allergy/AdvReac Type Severity Reaction Status Date / Time No Known Allergies Allergy Verified 09/23/17 21:20 - Medications Medications: Current Medications Metronidazole (Flagyl) 500 mg in 100 mls @ 100 mls/hr IVPB Q8 [facility] PRN Reason: Protocol Last Admin: 09/24/17 05:19 Dose: 100 mls/hr Ceftriaxone Sodium (Rocephin 1 Gram Ivpb) 1 gm in 100 mls @ 100 mls/hr IVPB DAILY [facility] PRN Reason: Protocol Last Admin: 09/24/17 09:11 Dose: 100 mls/hr Sodium Chloride (Sodium Chloride 0.9%) 1,000 mls @ 125 mls/hr IV .Q8H [facility] Last Admin: 09/24/17 03:55 Dose: 125 mls/hr Morphine Sulfate (Morphine) 2 mg IVP Q4H PRN PRN Reason: Pain, severe (8-10) Morphine Sulfate (Morphine) 1 mg IVP Q4H PRN PRN Reason: Pain, moderate (4-7) Ondansetron HCl (Zofran Inj) 4 mg IVP Q4H PRN PRN Reason: Nausea/Vomiting Pantoprazole Sodium (Protonix Inj) 40 mg IVP DAILY [facility] Physical Exam - Constitutional Appears: Non-toxic, No Acute Distress - Eye Exam Eye Exam: EOMI, PERRL - ENT Exam ENT Exam: Mucous Membranes Moist - Respiratory Exam Respiratory Exam: Clear to Auscultation Bilateral. absent: Rales, Rhonchi, Wheezes - Cardiovascular Exam Cardiovascular Exam: RRR, +S1, +S2 - GI/Abdominal Exam GI & Abdominal Exam: Normal Bowel Sounds, Soft, Tenderness (RUQ, Cardoza+). absent: Distended, Firm, Guarding, Organomegaly, Rigid - Extremities Exam Extremities exam: Positive for: normal inspection. Negative for: pedal edema - Neurological Exam Neurological exam: Alert, Oriented x3 - Psychiatric Exam Psychiatric exam: Normal Affect, Normal Mood - Skin Skin Exam: Dry, Warm Results - Vital Signs Recent Vital Signs: Last Vital Signs Temp 97.5 F L 09/24/17 09:05 Pulse 76 09/24/17 09:05 Resp 20 09/24/17 09:05 BP 103/64 09/24/17 09:05 Pulse Ox 95 09/24/17 09:05 - Labs Result Diagrams: 09/24/17 06:00 09/24/17 06:00 Labs: Laboratory Results - last 24 hr 09/23/17 09/24/17 09/24/17 18:45 06:00 06:00 WBC 2.8 L* RBC 4.67 Hgb 11.5 L Hct 35.6 L MCV 76.2 L MCH 24.6 L MCHC 32.3 RDW 14.9 H Plt Count 189 MPV 11.5 H Gran % 32.8 L Lymph % (Auto) 49.8 H [place] % (Auto) 8.9 H Eos % (Auto) 7.8 H Baso % (Auto) 0.7 Gran # 0.92 L Lymph # (Auto) 1.4 [place] # (Auto) 0.3 Eos # (Auto) 0.2 Baso # (Auto) 0.02 Sodium 143 Potassium 3.9 Chloride 112 H Carbon Dioxide 23 Anion Gap 12 BUN 7 Creatinine 0.5 L Est GFR ( Amer) > 60 Est GFR (Non-Af Amer) > 60 Random Glucose 93 Calcium 8.0 L Total Bilirubin 2.1 H AST 481 H D ALT 1090 H Alkaline Phosphatase 144 H D Total Protein 6.5 Albumin 3.4 Globulin 3.2 Albumin/Globulin Ratio 1.1 Hepatitis A IgM Ab Negative Hep Bs Antigen Negative Hep B Core IgM Ab Negative Hepatitis C Antibody Negative Assessment & Plan - Assessment and Plan (Free Text) Assessment: Patient is a 32yo female with no significant past medical history who presented to the ED with 3 days of abdominal pain -Acute cholecystitis -Abnormal LFTs -Leukopenia/microcytic anemia Plan: -U/S reviewed and in conjunction with history/exam - c/w acute cholecystitis -Surgical evaluation in process -MRCP ordered by medicine team, pending -Pt on ceftriaxone/flagyl - consider changing ceftriaxone if LFTs do not continue to trend downward -Diet as tolerated, NPO if plan for surgery -No further recommendations at this time - Date & Time Date: 09/24/17 Time: 13:40 <Jr Alexander - Last Filed: 09/24/17 17:15> Meds - Medications Medications: Current Medications Metronidazole (Flagyl) 500 mg in 100 mls @ 100 mls/hr IVPB Q8 ALEX PRN Reason: Protocol Last Admin: 09/24/17 05:19 Dose: 100 mls/hr Ceftriaxone Sodium (Rocephin 1 Gram Ivpb) 1 gm in 100 mls @ 100 mls/hr IVPB DAILY [facility] PRN Reason: Protocol Last Admin: 09/24/17 09:11 Dose: 100 mls/hr Sodium Chloride (Sodium Chloride 0.9%) 1,000 mls @ 125 mls/hr IV .Q8H [facility] Last Admin: 09/24/17 03:55 Dose: 125 mls/hr Morphine Sulfate (Morphine) 2 mg IVP Q4H PRN PRN Reason: Pain, severe (8-10) Morphine Sulfate (Morphine) 1 mg IVP Q4H PRN PRN Reason: Pain, moderate (4-7) Ondansetron HCl (Zofran Inj) 4 mg IVP Q4H PRN PRN Reason: Nausea/Vomiting Pantoprazole Sodium (Protonix Inj) 40 mg IVP DAILY [facility] Results - Vital Signs Recent Vital Signs: Last Vital Signs Temp 97.5 F L 09/24/17 09:05 Pulse 76 09/24/17 09:05 Resp 20 09/24/17 09:05 BP 103/64 09/24/17 09:05 Pulse Ox 95 09/24/17 09:05 - Labs Result Diagrams: 09/24/17 06:00 09/24/17 06:00 Labs: Laboratory Results - last 24 hr 09/23/17 09/24/17 09/24/17 18:45 06:00 06:00 WBC 2.8 L* RBC 4.67 Hgb 11.5 L Hct 35.6 L MCV 76.2 L MCH 24.6 L MCHC 32.3 RDW 14.9 H Plt Count 189 MPV 11.5 H Gran % 32.8 L Lymph % (Auto) 49.8 H [place] % (Auto) 8.9 H Eos % (Auto) 7.8 H Baso % (Auto) 0.7 Gran # 0.92 L Lymph # (Auto) 1.4 [place] # (Auto) 0.3 Eos # (Auto) 0.2 Baso # (Auto) 0.02 Sodium 143 Potassium 3.9 Chloride 112 H Carbon Dioxide 23 Anion Gap 12 BUN 7 Creatinine 0.5 L Est GFR ( Amer) > 60 Est GFR (Non-Af Amer) > 60 Random Glucose 93 Calcium 8.0 L Total Bilirubin 2.1 H AST 481 H D ALT 1090 H Alkaline Phosphatase 144 H D Total Protein 6.5 Albumin 3.4 Globulin 3.2 Albumin/Globulin Ratio 1.1 Hepatitis A IgM Ab Negative Hep Bs Antigen Negative Hep B Core IgM Ab Negative Hepatitis C Antibody Negative Attending/Attestation - Attestation I have personally seen and examined this patient.: Yes I have fully participated in the care of the patient.: Yes I have reviewed all pertinent clinical information: Yes Notes (Text): 09/24/17 17:03 This is a 32 year old female with no significant past medical history who presented with acute cholecystitis with abnormal LFTs with unremarkable MRCP for bile duct stone. Recommend to proceed as per surgical service. No further GI recommendations at this time. Thank you for letting us participate in the care of your patient
--- NOTE | 2017-09-24 16:09 | MRI ---
PROCEDURE: Magnetic Resonance Cholangiopancreatography HISTORY: COMPARISON: None available. TECHNIQUE: Multiplanar, multisequence MR images of the abdomen were obtained, including heavily T2 weighted MRCP images of the biliary system. Rotating maximum intensity projection images of the biliary system were generated. FINDINGS: Examination is somewhat technically limited by respiratory motion artifact. MRCP: The common bile duct is of a normal caliber. No evidence of choledocholithiasis. No intrahepatic biliary ductal dilatation. LIVER: Unremarkable. GALLBLADDER: Cholelithiasis. Thickened wall. Mild pericholecystic inflammatory change/ edema on T2 weighted images. Findings are concerning for cholecystitis. SPLEEN: Unremarkable. PANCREAS: Unremarkable. ADRENALS: Unremarkable. KIDNEYS: Unremarkable. AORTA: No aneurysm. ASCITES: None. OTHER FINDINGS: None. IMPRESSION: Cholelithiasis. Findings concerning for cholecystitis. No evidence of biliary obstruction. No evidence of choledocholithiasis. No evidence of acute pancreatitis.
[2017-09-24 22:05] LABS: ALB/GLOB RATIO 1.3 (1.1-1.8); ALBUMIN 4.2 g/dL (3.0-4.8); ALT/SGPT 989 U/L (7-56); AST/SGOT 293 U/L (14-36); BLOOD UREA NITROGEN 5 mg/dL (7-21); CALCIUM 8.8 mg/dL (8.4-10.5); GFR AFRICAN-AMERICAN > 60; GFR NON-AFRICAN AMERICAN > 60
--- NOTE | 2017-09-24 22:26 | CARD ---
APPROVED REPORT EKG Measurement Heart [id number] VT [id number] <Conclusion> Normal sinus rhythm Normal ECG
[2017-09-25] MEDS: Sodium Chloride 0.9% 1,000 ML IV SCH (05:09)
[2017-09-25] MEDS: metroNIDAZOLE IV 500 mg/100 ml 500 MG/100 ML BAG IVPB SCH (05:09)
--- NOTE | 2017-09-25 06:53 | CP.PCM.PN ---
Subjective - Date & Time of Evaluation Date of Evaluation: 09/25/17 Objective - Vital Signs/Intake and Output Vital Signs (last 24 hours): Temp Pulse Resp BP Pulse Ox 98.0 F 81 19 103/54 L 100 09/24/17 17:50 09/24/17 17:50 09/24/17 17:50 09/24/17 17:50 09/24/17 17:50 Intake and Output: 09/24/17 09/25/17 18:59 06:59 Intake Total 0 Balance 0 - Medications Medications: Current Medications Metronidazole (Flagyl) 500 mg in 100 mls @ 100 mls/hr IVPB Q8 [facility]LEX PRN Reason: Protocol Last Admin: 09/25/17 05:09 Dose: 100 mls/hr Ceftriaxone Sodium (Rocephin 1 Gram Ivpb) 1 gm in 100 mls @ 100 mls/hr IVPB DAILY [facility] PRN Reason: Protocol Last Admin: 09/24/17 09:11 Dose: 100 mls/hr Sodium Chloride (Sodium Chloride 0.9%) 1,000 mls @ 125 mls/hr IV .Q8H [facility] Last Admin: 09/25/17 05:09 Dose: 125 mls/hr Morphine Sulfate (Morphine) 2 mg IVP Q4H PRN PRN Reason: Pain, severe (8-10) Morphine Sulfate (Morphine) 1 mg IVP Q4H PRN PRN Reason: Pain, moderate (4-7) Ondansetron HCl (Zofran Inj) 4 mg IVP Q4H PRN PRN Reason: Nausea/Vomiting Pantoprazole Sodium (Protonix Inj) 40 mg IVP DAILY [facility] - Labs Labs: 09/24/17 06:00 09/24/17 21:20 PT 12.5 SECONDS (9.4-12.5) 09/23/17 15:46 INR 1.09 (0.93-1.08) H 09/23/17 15:46 APTT 27.6 Seconds (25.1-36.5) 09/23/17 15:46
[2017-09-25 06:56] LABS: BASO # 0.02 K/mm3 (0.0-2.0); BASO % 0.5 % (0.0-3.0); EOS # 0.3 (0.0-0.7); EOS % 6.8 % (1.5-5.0); GRAN # 1.44 (1.4-6.5); GRAN % 39.2 % (50.0-68.0); HEMOGLOBIN 11.6 g/dL (12.0-16.0); LYMPH # 1.6 (1.2-3.4); MEAN CORPUSCULAR HEMOGLOBIN 24.2 pg (25.0-35.0); MEAN CORPUSCULAR HGB CONC 31.8 g/dl (31.0-37.0); MEAN PLATELET VOLUME 11.7 fl (7.0-11.0); MONO # 0.4 (0.1-0.6); MONO % 9.5 % (1.0-6.0); RBC 4.8 10^6/uL (3.5-6.1); RED CELL DISTRIBUTION WIDTH 14.9 % (11.5-14.5); WHITE BLOOD COUNT 3.7 10^3/ul (4.5-11.0)
[2017-09-25 07:15] LABS: ALB/GLOB RATIO 1.1 (1.1-1.8); ALBUMIN 3.6 g/dL (3.0-4.8); ALT/SGPT 803 U/L (7-56); AST/SGOT 181 U/L (14-36); BLOOD UREA NITROGEN 5 mg/dL (7-21); CALCIUM 8.4 mg/dL (8.4-10.5); GFR AFRICAN-AMERICAN > 60; GFR NON-AFRICAN AMERICAN > 60
[2017-09-25] MEDS ORDERED: Propofol 10 mg/ml Inj (20 ML) ONE (07:28)
[2017-09-25] MEDS ORDERED: Lidocaine 1% Inj (20ml) ONE (07:28)
[2017-09-25] MEDS ORDERED: Neostigmine Methylsulfate 3mg/3ml Syringe IV ONE (07:28)
[2017-09-25] MEDS ORDERED: Rocuronium 10 mg/ml (5 ml) ONE (07:29)
[2017-09-25] MEDS ORDERED: Succinylcholine 200 mg/10 ml Inj IV ONE (07:29)
[2017-09-25] MEDS ORDERED: Sevoflurane - Inhalation Anesthetic Liq (250 ml) ONE (07:31)
[2017-09-25] MEDS ORDERED: Bupivacaine 0.5% Inj(30mL) ONE (07:43)
[2017-09-25] MEDS ORDERED: Iohexol 240 (50 ml) ONE (07:43)
[2017-09-25] MEDS ORDERED: cefTRIAXone (Rocephin) 1 gm Inj ONE (08:11)
[2017-09-25] MEDS ORDERED: Lactated Ringer's 1,000 ML IV SCH (09:30)
--- NOTE | 2017-09-25 09:59 | PCM.SURG1 ---
Surgeon's Initial Post Op Note - Surgeon's Notes Surgeon: Dr. Thompson Search Engine Optimizer: Lashon Herron, PGY-1 Type of Anesthesia: General Endo Anesthesia Administered By: Dr Castañeda Pre-Operative Diagnosis: Acute cholecystitis Operative Findings: Cholecystitis, cholelithiasis; see op report Post-Operative Diagnosis: Acute cholecystitis, cholelithiasis Operation Performed: Laparoscopic cholecystectomy with IOC Specimen/Specimens Removed: Gallbladder & stones Estimated Blood Loss: EBL {In ML}: 5 Blood Products Given: N/A Drains Used: No Drains Post-Op Condition: Good Date of Surgery/Procedure: 09/25/17 Time of Surgery/Procedure: 09:59
[2017-09-25] MEDS ORDERED: Oxycodone/Acetaminophen 5/325 mg Tab PO PRN (10:01)
[2017-09-25] MEDS: HYDROmorphone 0.5 mg/0.5 ml ISec IVP PRN ×2 (10:03→10:17)
[2017-09-25] MEDS ORDERED: HYDROmorphone 0.5 mg/0.5 ml ISec ONE ×4 (10:04→10:48)
[2017-09-25] MEDS ORDERED: HYDROmorphone 0.5 mg/0.5 ml ISec IVP ONE ×2 (10:33→10:48)
--- NOTE | 2017-09-25 13:25 | CP.PCM.DIS ---
<Madyson Rosenbaum - Last Filed: 09/25/17 13:53> Provider - Provider Date of Admission: 09/23/17 17:39 Attending physician: Mili Pedro MD Consults: Dr. Catherine Thompson Surgery Time Spent in preparation of Discharge (in minutes): 30 Hospital Course - Lab Results Lab Results: Micro Results 09/23/17 19:37 Urine,Clean Catch Urine Culture - Final 50-100,000 CFU/ML. MULTIPLE SPECIES. SUGGEST REPEAT SPECIMEN. 09/23/17 18:11 Blood-Venous Blood Culture - Preliminary NO GROWTH AFTER 24 HOURS 09/23/17 17:45 Blood-Venous Blood Culture - Preliminary NO GROWTH AFTER 24 HOURS Most Recent Lab Values WBC 3.7 10^3/ul (4.5-11.0) L D 09/25/17 06:00 RBC 4.80 10^6/uL (3.5-6.1) 09/25/17 06:00 Hgb 11.6 g/dL (12.0-16.0) L 09/25/17 06:00 Hct 36.5 % (36.0-48.0) 09/25/17 06:00 MCV 76.0 fl (80.0-105.0) L 09/25/17 06:00 MCH 24.2 pg (25.0-35.0) L 09/25/17 06:00 MCHC 31.8 g/dl (31.0-37.0) 09/25/17 06:00 RDW 14.9 % (11.5-14.5) H 09/25/17 06:00 Plt Count 219 10^3/uL (120.0-450.0) 09/25/17 06:00 MPV 11.7 fl (7.0-11.0) H 09/25/17 06:00 Gran % 39.2 % (50.0-68.0) L 09/25/17 06:00 Lymph % (Auto) 44.0 % (22.0-35.0) H 09/25/17 06:00 [place] % (Auto) 9.5 % (1.0-6.0) H 09/25/17 06:00 Eos % (Auto) 6.8 % (1.5-5.0) H 09/25/17 06:00 Baso % (Auto) 0.5 % (0.0-3.0) 09/25/17 06:00 Gran # 1.44 (1.4-6.5) 09/25/17 06:00 Lymph # (Auto) 1.6 (1.2-3.4) 09/25/17 06:00 [place] # (Auto) 0.4 (0.1-0.6) 09/25/17 06:00 Eos # (Auto) 0.3 (0.0-0.7) 09/25/17 06:00 Baso # (Auto) 0.02 K/mm3 (0.0-2.0) 09/25/17 06:00 PT 12.5 SECONDS (9.4-12.5) 09/23/17 15:46 INR 1.09 (0.93-1.08) H 09/23/17 15:46 APTT 27.6 Seconds (25.1-36.5) 09/23/17 15:46 Sodium 142 mmol/L (132-148) 09/25/17 06:00 Potassium 3.7 mmol/L (3.6-5.0) 09/25/17 06:00 Chloride 108 mmol/L (98-107) H 09/25/17 06:00 Carbon Dioxide 23 mmol/L (21-33) 09/25/17 06:00 Anion Gap 15 (10-20) 09/25/17 06:00 BUN 5 mg/dL (7-21) L 09/25/17 06:00 Creatinine 0.5 mg/dl (0.7-1.2) L 09/25/17 06:00 Est GFR ( Amer) > 60 09/25/17 06:00 Est GFR (Non-Af Amer) > 60 09/25/17 06:00 Random Glucose 90 mg/dL (70-110) 09/25/17 06:00 Calcium 8.4 mg/dL (8.4-10.5) 09/25/17 06:00 Magnesium 2.3 mg/dL (1.7-2.2) H 09/23/17 15:46 Total Bilirubin 1.1 mg/dL (0.2-1.3) 09/25/17 06:00 AST 181 U/L (14-36) H D 09/25/17 06:00 ALT 803 U/L (7-56) H 09/25/17 06:00 Alkaline Phosphatase 152 U/L (38-126) H 09/25/17 06:00 Total Protein 6.9 g/dL (5.8-8.3) 09/25/17 06:00 Albumin 3.6 g/dL (3.0-4.8) 09/25/17 06:00 Globulin 3.3 gm/dL 09/25/17 06:00 Albumin/Globulin Ratio 1.1 (1.1-1.8) 09/25/17 06:00 Lipase 188 U/L (23-300) 09/23/17 15:46 Urine Color Dark yellow (YELLOW) 09/23/17 15:46 Urine Appearance Sl cloudy (CLEAR) 09/23/17 15:46 Urine pH 7.0 (4.7-8.0) 09/23/17 15:46 Ur Specific [place] 1.015 (1.005-1.035) 09/23/17 15:46 Urine Protein Negative mg/dL (<30 mg/dL) 09/23/17 15:46 Urine Glucose (UA) Negative mg/dL (NEGATIVE) 09/23/17 15:46 Urine Ketones Negative mg/dL (NEGATIVE) 09/23/17 15:46 Urine Blood Large (NEGATIVE) H 09/23/17 15:46 Urine Nitrate Negative (NEGATIVE) 09/23/17 15:46 Urine Bilirubin Moderate (NEGATIVE) H 09/23/17 15:46 Urine Urobilinogen 1.0 E.U./dL (<1 E.U./dL) H 09/23/17 15:46 Ur Leukocyte Esterase Small [place]/uL (NEGATIVE) H 09/23/17 15:46 Urine RBC 5 - 10 /hpf (0-2) 09/23/17 15:46 Urine WBC 5 - 10 /hpf (0-6) 09/23/17 15:46 Ur Epithelial Cells 3 - 4 /hpf (0-5) 09/23/17 15:46 Amorphous Sediment Few 09/23/17 15:46 Urine Bacteria Few (NEG) 09/23/17 15:46 Acetaminophen < 10.0 ug/ml (10.0-20.0) L 09/23/17 17:17 Alcohol, Quantitative < 10 mg/dL (0-10) 09/23/17 17:17 Hepatitis A IgM Ab Negative (NEGATIVE) 09/23/17 18:45 Hep Bs Antigen Negative (NEGATIVE) 09/23/17 18:45 Hep B Core IgM Ab Negative (NEGATIVE) 09/23/17 18:45 Hepatitis C Antibody Negative (NEGATIVE) 09/23/17 18:45 - Hospital Course Hospital Course: 32 year old of [place] descent, female with a past medical history of gastritis diagnosed 2 months by EGD who presents with 2 days of nausea, RUQ abdominal pain that has been constant for the past two days. She tried taking a pain reliever at home without any improvement in her symptoms. She denies fever, chills, diarrhea, dysuria, chest pain, or pruritus. She states the pain is 101/ 10 in severity. In the past 3-4 years she had similar episodes that did not last longer than 5 minutes; however, this time it has been constant. She is from [place] and is visiting her mother. She reports taking lansoprazole for the past two months and stopped a few days. She denies any surgeries aside from 3 C-sections. She is a homemaker; denies alcohol, tobacco, or illicit drug use. She cannot recall the name of the pain medication she took prior to admission. Otherwise, 12 point review of systems in negative. She underwent an abdominal US that showed multiple gallstones completely filling the gallbladder, wall thickening/ edema and positive sonographic Cardoza' s sign in the appropriate clinical setting may represent acute calculus cholecystitis. . Mild left hydronephrosis. She was admitted for acute cholecystitis kept NPO and started on IV fluids , Flagyl, Rocephin, antiemetics, protonix, and morphine for pain. Surgery and GI were consulted. She underwent an MRCP that showed Cholelithiasis. Findings concerning for cholecystitis. No evidence of biliary obstruction. No evidence of choledocholithiasis. No evidence of acute pancreatitis. The patient underwent a laparscopic cholecystecomy with intraoperative cholangiogram without any complications. She was able to ambulate, urinate, and tolerate a diet on post-operatively. She was discharged with the below written instructions and recommendations. She was offered follow up with [facility] to follow up her LFTs or with her PMD. The patient's mother was kept informed during the patient's hospital course. - Date & Time of H&P Date of H&P: 09/25/17 Time of H&P: 13:38 Discharge Exam - Head Exam Head Exam: ATRAUMATIC, NORMOCEPHALIC - Eye Exam Eye Exam: EOMI, Normal appearance - ENT Exam ENT Exam: Mucous Membranes Moist, Normal Oropharynx - Neck Exam Neck exam: Normal Inspection - Respiratory Exam Respiratory Exam: Clear to PA & Lateral, NORMAL BREATHING PATTERN. absent: Accessory Muscle Use - Cardiovascular Exam Cardiovascular Exam: RRR, +S1, +S2 - GI/Abdominal Exam GI & Abdominal Exam: Normal Bowel Sounds - Extremities Exam Extremities exam: normal inspection - Back Exam Back exam: NORMAL INSPECTION. absent: CVA tenderness (L), CVA tenderness (R) - Neurological Exam Neurological exam: Alert, CN II-XII Intact, Oriented x3 - Psychiatric Exam Psychiatric exam: Normal Affect, Normal Mood - Skin Skin Exam: Dry, Intact, Normal Color, Warm Discharge Plan - Discharge Medications Prescriptions: Ciprofloxacin HCl [Cipro] 500 mg PO BID #10 tablet Docusate Sodium [Colace] 100 mg PO BID #10 capsule Simethicone [Gas Relief] 80 mg PO Q6H PRN #4 tab.chew PRN Reason: gas oxyCODONE [oxyCODONE Immediate Release Tab] 5 mg PO Q6 #10 tab Ondansetron HCl [Zofran] 4 mg PO Q4H PRN #6 tablet PRN Reason: Nausea/Vomiting - Follow Up Plan Condition: STABLE Disposition: HOME/ ROUTINE Instructions: Cholecystectomy, Laparoscopic Surgery, Cholecystitis (DC) Additional Instructions: Ok to shower washing surgical incision gently with soap and water, do not sit in a hot tub or go swimming You have special glue over your surgical incisions, do not pick it off- it will fall off on it's own You may resume a normal diet, however if you eat fatty foods, you may have diarrhea as your body is adjusting to not having a gallbladder No heavy lifting for 4-6 weeks, including not lifting your children. If you are here in 2 weeks, make a follow up appointment with Dr. Thompson, otherwise see your primary care doctor in [place] for a wound check. Please return to [facility] if you start to have fevers, chills, or if pain medication does not help control your pain as discussed with patient and patient's mother If you take pain medication, please take the Colace-stool softener to prevent constipation. Referrals: [facility] [place] [Outside] - 1 Week Jimmy Thompson MD [Staff Provider] - <Mili Pedro - Last Filed: 09/26/17 11:45> Provider - Provider Date of Admission: 09/23/17 17:39 Attending physician: Mili Pedro MD Hospital Course - Lab Results Lab Results: Micro Results 09/23/17 18:11 Blood-Venous Blood Culture - Preliminary NO GROWTH AFTER 48 HOURS 09/23/17 17:45 Blood-Venous Blood Culture - Preliminary NO GROWTH AFTER 48 HOURS 09/23/17 19:37 Urine,Clean Catch Urine Culture - Final 50-100,000 CFU/ML. MULTIPLE SPECIES. SUGGEST REPEAT SPECIMEN. Most Recent Lab Values WBC 3.7 10^3/ul (4.5-11.0) L D 09/25/17 06:00 RBC 4.80 10^6/uL (3.5-6.1) 09/25/17 06:00 Hgb 11.6 g/dL (12.0-16.0) L 09/25/17 06:00 Hct 36.5 % (36.0-48.0) 09/25/17 06:00 MCV 76.0 fl (80.0-105.0) L 09/25/17 06:00 MCH 24.2 pg (25.0-35.0) L 09/25/17 06:00 MCHC 31.8 g/dl (31.0-37.0) 09/25/17 06:00 RDW 14.9 % (11.5-14.5) H 09/25/17 06:00 Plt Count 219 10^3/uL (120.0-450.0) 09/25/17 06:00 MPV 11.7 fl (7.0-11.0) H 09/25/17 06:00 Gran % 39.2 % (50.0-68.0) L 09/25/17 06:00 Lymph % (Auto) 44.0 % (22.0-35.0) H 09/25/17 06:00 [place] % (Auto) 9.5 % (1.0-6.0) H 09/25/17 06:00 Eos % (Auto) 6.8 % (1.5-5.0) H 09/25/17 06:00 Baso % (Auto) 0.5 % (0.0-3.0) 09/25/17 06:00 Gran # 1.44 (1.4-6.5) 09/25/17 06:00 Lymph # (Auto) 1.6 (1.2-3.4) 09/25/17 06:00 [place] # (Auto) 0.4 (0.1-0.6) 09/25/17 06:00 Eos # (Auto) 0.3 (0.0-0.7) 09/25/17 06:00 Baso # (Auto) 0.02 K/mm3 (0.0-2.0) 09/25/17 06:00 PT 12.5 SECONDS (9.4-12.5) 09/23/17 15:46 INR 1.09 (0.93-1.08) H 09/23/17 15:46 APTT 27.6 Seconds (25.1-36.5) 09/23/17 15:46 Sodium 142 mmol/L (132-148) 09/25/17 06:00 Potassium 3.7 mmol/L (3.6-5.0) 09/25/17 06:00 Chloride 108 mmol/L (98-107) H 09/25/17 06:00 Carbon Dioxide 23 mmol/L (21-33) 09/25/17 06:00 Anion Gap 15 (10-20) 09/25/17 06:00 BUN 5 mg/dL (7-21) L 09/25/17 06:00 Creatinine 0.5 mg/dl (0.7-1.2) L 09/25/17 06:00 Est GFR ( Amer) > 60 09/25/17 06:00 Est GFR (Non-Af Amer) > 60 09/25/17 06:00 Random Glucose 90 mg/dL (70-110) 09/25/17 06:00 Calcium 8.4 mg/dL (8.4-10.5) 09/25/17 06:00 Magnesium 2.3 mg/dL (1.7-2.2) H 09/23/17 15:46 Total Bilirubin 1.1 mg/dL (0.2-1.3) 09/25/17 06:00 AST 181 U/L (14-36) H D 09/25/17 06:00 ALT 803 U/L (7-56) H 09/25/17 06:00 Alkaline Phosphatase 152 U/L (38-126) H 09/25/17 06:00 Total Protein 6.9 g/dL (5.8-8.3) 09/25/17 06:00 Albumin 3.6 g/dL (3.0-4.8) 09/25/17 06:00 Globulin 3.3 gm/dL 09/25/17 06:00 Albumin/Globulin Ratio 1.1 (1.1-1.8) 09/25/17 06:00 Lipase 188 U/L (23-300) 09/23/17 15:46 Urine Color Dark yellow (YELLOW) 09/23/17 15:46 Urine Appearance Sl cloudy (CLEAR) 09/23/17 15:46 Urine pH 7.0 (4.7-8.0) 09/23/17 15:46 Ur Specific [place] 1.015 (1.005-1.035) 09/23/17 15:46 Urine Protein Negative mg/dL (<30 mg/dL) 09/23/17 15:46 Urine Glucose (UA) Negative mg/dL (NEGATIVE) 09/23/17 15:46 Urine Ketones Negative mg/dL (NEGATIVE) 09/23/17 15:46 Urine Blood Large (NEGATIVE) H 09/23/17 15:46 Urine Nitrate Negative (NEGATIVE) 09/23/17 15:46 Urine Bilirubin Moderate (NEGATIVE) H 09/23/17 15:46 Urine Urobilinogen 1.0 E.U./dL (<1 E.U./dL) H 09/23/17 15:46 Ur Leukocyte Esterase Small [place]/uL (NEGATIVE) H 09/23/17 15:46 Urine RBC 5 - 10 /hpf (0-2) 09/23/17 15:46 Urine WBC 5 - 10 /hpf (0-6) 09/23/17 15:46 Ur Epithelial Cells 3 - 4 /hpf (0-5) 06/27/18 15:46 Amorphous Sediment Few 09/23/17 15:46 Urine Bacteria Few (NEG) 09/23/17 15:46 Acetaminophen < 10.0 ug/ml (10.0-20.0) L 09/23/17 17:17 Alcohol, Quantitative < 10 mg/dL (0-10) 09/23/17 17:17 Hepatitis A IgM Ab Negative (NEGATIVE) 09/23/17 18:45 Hep Bs Antigen Negative (NEGATIVE) 09/23/17 18:45 Hep B Core IgM Ab Negative (NEGATIVE) 09/23/17 18:45 Hepatitis C Antibody Negative (NEGATIVE) 09/23/17 18:45 Attending/Attestation - Attestation I have personally seen and examined this patient.: Yes I have fully participated in the care of the patient.: Yes I have reviewed all pertinent clinical information, including history, physical exam and plan: Yes Notes (Text): 09/26/17 11:43 Attending note; Patient seen and examined with resident. Patient is a 32-year-old female with a past medical history of gastritis is admitted with acute cholecystitis. MRCP is negative for CBD stone. GI evaluation appreciated. Status post laparoscopic cholecystectomy today. Patient is alert and awake. Started on a diet. Surgery follow-up instruction given. Elevated LFTs; improved significantly. Mostly secondary to acute cholecystitis. No nausea, vomiting. Hepatitis profile negative. Follow-up LFTs as outpatient. Follow-up with [facility] [place] clinic if patient stays in [place]. Follow-up with surgery in 2 weeks. Discharge home with by mouth ciprofloxacin, Colace and Percocet as needed. Upon discharge patient will follow up with PMD in [place].
[2017-09-25] MEDS ORDERED: oxyCODONE 5 mg Immediate Release Tab PO PRN (15:51)
[2017-09-25 16:12] VITALS: BP 114/82; PULSE 73; RESP 20; TEMP 98.6; O2SAT 99
--- NOTE | 2017-09-25 21:22 | OP ---
PROCEDURE DATE: 09/25/2017 PREOPERATIVE DIAGNOSES: Acute cholecystitis and cholelithiasis. POSTOPERATIVE DIAGNOSES: Acute cholecystitis and cholelithiasis. PROCEDURE PERFORMED: Laparoscopic cholecystectomy with intraoperative cholangiogram. SURGEON: Jimmy Thompson MD ENERGY EFFICIENCY ENGINEER: Dr. Herron. ANESTHESIOLOGIST: Harrison Castañeda MD TYPE OF ANESTHESIA: General endotracheal anesthesia. ESTIMATED BLOOD LOSS: Minimal. SPECIMEN: Gallbladder and gallstones. INDICATIONS: Patient is a 32-year-old female with history of acute right upper quadrant abdominal pain, radiating to her back. Patient had a workup revealing presently elevated liver function tests, which was slowly coming down over the past 2 days. Patient was scheduled for the laparoscopic cholecystectomy for acute cholecystitis. DESCRIPTION OF PROCEDURE: Patient was brought to the operating room and placed on the operating table in the supine position. Patient was connected to the EKG, blood pressure, and pulse oximetry monitors. Patient then underwent general endotracheal anesthesia and was prepped and draped in the usual sterile fashion. First, a standard time-out procedure took place when everybody in the room agreed as to the patient's identity, diagnoses, and procedure to be performed. The operative as well as postoperative course was discussed with the OR team. Using 2 towel clips, the anterior abdominal wall was elevated and a Veress needle was inserted through the periumbilical incision into the abdominal cavity. Once pneumoperitoneum was obtained, a 12-mm trocar was inserted through that incision and careful evaluation of the abdominal cavity revealed the presence of distended gallbladder with thickened wall and edema. A second 5-mm trocar was inserted through the subxiphoid position and careful dissection began at the infundibulum. The infundibulum was carefully stripped off the surrounding fat and the cystic duct was exposed with the cystic duct directly behind it. The cystic duct was clipped proximally and small incision was made on the side of it, in order to place a cholangiocatheter inside the cystic duct. Once this was done, under direct visualization and fluoroscopy, a cholangiogram was obtained. This revealed prompt flow of dye through the entire biliary tree and prompt emptying into the duodenum without any evidence of defects. We then proceeded with removing the cystic duct catheter and clipped the cystic duct distally and transected it. Cystic artery was also clipped and transected and the gallbladder was carefully taken off its liver bed using electrocautery. Once completely detached, it was placed in the EndoCatch bag and removed through the periumbilical incision. The gallbladder contained multiple small stones. There was also sludge present. The gallbladder was sent as a specimen. The right upper quadrant was now copiously irrigated. All the irrigant fluid was suctioned out and the pneumoperitoneum was released. The trocars were removed after they were carefully evaluated from inside for bleeding and there was none noted. Once the trocars were out, the wounds were closed using 0-Vicryl for the fascia, 3-0 Vicryl for subcutaneous tissue, and 4-0 Monocryl for the skin. A sterile Dermabond dressing was applied to the wounds. Patient tolerated the procedure well and there were no complications. Patient was awakened and transferred to the recovery room for further observation. Jimmy Thompson MD
--- NOTE | 2017-09-29 18:44 | RAD ---
PROCEDURE: Fluoroscopy up to 1 hr. HISTORY: CHOLANGIOGRAM OPERATIVE COMPARISON: None TECHNIQUE: Standard protocol for this study/examination. FINDINGS: Total fluoroscopic time (continuous mode) utilized during the procedure (seconds) 19.1. IMPRESSION: Total exam DLP: (mGy) 6.46.
== END 2017-09-25 19:59 | disposition home or self-care (01) | DRG 493 ==
LOC: ED 15:30 → ERH 17:39 → 3RSO 19:56
PROVIDERS: ADMIT Internal Medicine; ATTEND Internal Medicine
PROC: BF131ZZ Fluoroscopy of Gallbladder and Bile Ducts using Low Osmolar Contrast (ICD-10-PCS; 2017-09-25)
PROC: 0FT44ZZ Resection of Gallbladder, Percutaneous Endoscopic Approach (ICD-10-PCS; principal; 2017-09-25 07:30)
DX: K80.62 Calculus of gallbladder and bile duct with acute cholecystitis without obstruction (principal); N39.0 Urinary tract infection, site not specified; N13.30 Unspecified hydronephrosis; K29.70 Gastritis, unspecified, without bleeding; K59.00 Constipation, unspecified; Z86.12 Personal history of poliomyelitis; Z83.3 Family history of diabetes mellitus

== ENCOUNTER 2017-10-03 11:51 | Emergency (ER) | payer MEDICAID ==
[2017-10-03 12:15] VITALS: BMI 26.6
[2017-10-03 12:16] VITALS: RESP 18; O2SAT 99
--- NOTE | 2017-10-03 13:23 | ED PDOC ---
Arrival/HPI - General Chief Complaint: Abdominal Pain Time Seen by Provider: 10/03/17 12:51 Historian: Patient - History of Present Illness Narrative History of Present Illness (Text): 10/03/17 13:16 Pt is a 32 yr old female with PMH of cholecystitis who present to the ED with RUQ and LLQ pain s/p cholecystectomy 7 days ago. Pt states the pain started yesterday, commencing with her menses, but cannot sleep on the right side due to the discomfort. Pt denies fever, chills, shortness of breath, back pain, increase in flow of menses, change in appetite, bladder or bowel, nausea, vomiting or diarrhea. PMD: none Surgeon: Dr Turcios Past Medical History - Provider Review Nursing Documentation Reviewed: Yes - Travel History Have you recently traveled outside [place] w/in the past 3 mons?: No - Cardiac Hx Cardiac Disorders: No - Pulmonary Hx Respiratory Disorders: No - Neurological Hx Neurological Disorder: No - HEENT Hx HEENT Disorder: No - Hematological/Oncological Hx Blood Transfusions: No Hx Blood Transfusion Reaction: No - Integumentary Hx Dermatological Disorder: No - Musculoskeletal/Rheumatological Hx Musculoskeletal Disorders: Yes Hx Falls: No Hx Unsteady Gait: Yes Other/Comment: Polio - Gastrointestinal Hx Gastrointestinal Disorders: Yes Hx Gall Bladder Disease: Yes (CHOLECYSTITIS) - Genitourinary/Gynecological Hx Genitourinary Disorders: Yes (3 C SECTIONS) Hx Urinary Tract Infection: Yes - Psychiatric Hx Substance Use: No - Surgical History Hx Cholecystectomy: Yes - Anesthesia Hx Anesthesia Reactions: No Hx Malignant Hyperthermia: No Family/Social History - Physician Review Nursing Documentation Reviewed: Yes Family/Social History: Unknown Family HX Smoking Status: Never Smoked Hx Alcohol Use: No Hx Substance Use: No Allergies/Home Meds Allergies/Adverse Reactions: Allergies piperacillin [From Zosyn] Allergy (Verified 09/25/17 07:25) ITCHING tazobactam [From Zosyn] Allergy (Verified 09/25/17 07:25) ITCHING Home Medications: Home Meds Medication Instructions Recorded Confirmed No Known Home Med 10/03/17 10/03/17 Review of Systems - Review of Systems Constitutional: Normal Eyes: Normal ENT: Normal Respiratory: Normal. absent: SOB, Cough Cardiovascular: Normal. absent: Chest Pain Gastrointestinal: Normal, Abdominal Pain (RUQ and LLQ). absent: Stool Changes, Constipation, Diarrhea, Nausea, Vomiting, Appetite Changes, Hematochezia, Hematemesis Genitourinary Female: Normal. absent: Dysuria, Frequency, Hematuria Musculoskeletal: Normal. absent: Arthralgias, Back Pain Skin: Normal Neurological: Normal. absent: Headache Endocrine: Normal. absent: Diaphoresis Hemo/Lymphatic: Normal Psychiatric: Normal Physical Exam Vital Signs Reviewed: Yes Vital Signs Temp Pulse Resp BP Pulse Ox 10/03/17 14:58 88 18 128/72 99 10/03/17 13:52 98.6 F 88 18 128/89 99 10/03/17 12:13 97.9 F 87 18 104/60 99 Temperature: Afebrile Blood Pressure: Normal Pulse: Regular Respiratory Rate: Normal Appearance: Positive for: Well-Appearing, Non-Toxic, Comfortable Pain Distress: Moderate Mental Status: Positive for: Alert and Oriented X 3 - Systems Exam Head: Present: Atraumatic, Normocephalic Pupils: Present: PERRL Extroacular Muscles: Present: EOMI Conjunctiva: Present: Normal Mouth: Present: Moist Mucous Membranes Neck: Present: Normal Range of Motion Respiratory/Chest: Present: Clear to Auscultation, Good Air Exchange. No: Respiratory Distress, Accessory Muscle Use Cardiovascular: Present: Regular Rate and Rhythm, Normal S1, S2. No: Murmurs Abdomen: Present: Tenderness (RUQ and LLQ), Normal Bowel Sounds, Rebound, Guarding (voluntary), Scars (7 days old lap scars from annie procedure). No: Distention, Peritoneal Signs, McBurney's Point Tender Back: Present: Normal Inspection Upper Extremity: Present: Normal Inspection, Normal ROM, NORMAL PULSES, Neurovascularly Intact, Capillary Refill < 2s. No: Cyanosis, Edema Lower Extremity: Present: Normal Inspection, NORMAL PULSES, Normal ROM, Neurovascularly Intact, Capillary Refill < 2 s. No: Edema Neurological: Present: GCS=15, CN II-XII Intact, Speech Normal Skin: Present: Warm, Dry, Normal Color. No: Rashes Psychiatric: Present: Alert, Oriented x 3, Normal Insight, Normal Concentration Medical Decision Making ED Course and Treatment: 10/03/17 13:23 Impression Pt is a 32 yr old female with PMH of cholecystitis who present to the ED with RUQ and LLQ pain s/p cholecystectomy 7 days ago. On exam, (+) murphys, tender to palpation over the RUQ and LLQ, Working Dx: post cholecystectomy complications; infection, bleeding, DVT, Plan Labs, UA abdominal US assess and dispo Progress note US IMPRESSION: Satisfactory postoperative status. No abnormalities in the gallbladder fossa common no free fluid in the left upper quadrant or right upper quadrant. labs wnl discussed findings with pt; she added that her pain started after ceasing to take percocet that she took daily post-op; advised to f/u wit Dr Arias in 2 days for f/u care pt hemodynamically stable on d/c return to ed if worsening pain and fever 10/03/17 17:13 - Lab Interpretations Lab Results: 10/03/17 13:10 10/03/17 13:10 Lab Results 10/03/17 13:30: PT 12.0, INR 1.05, APTT 29.3 10/03/17 13:10: Sodium 140, Potassium 4.0, Chloride 101, Carbon Dioxide 25, Anion Gap 18, BUN 12, Creatinine 0.5 L, Est GFR ( Amer) > 60, Est GFR ( Non-Af Amer) > 60, Random Glucose 102, Calcium 9.2, Total Bilirubin 0.4, AST 28 , ALT 147 H, Alkaline Phosphatase 89, Total Protein 7.9, Albumin 4.4, Globulin 3.5, Albumin/Globulin Ratio 1.3 10/03/17 13:10: Urine Color Yellow, Urine Appearance Clear, Urine pH 6.5, Ur Specific [place] 1.010, Urine Protein Negative, Urine Glucose (UA) Negative, Urine Ketones Negative, Urine Blood Large H, Urine Nitrate Negative, Urine Bilirubin Negative, Urine Urobilinogen 0.2, Ur Leukocyte Esterase Small H, Urine RBC 0 - 2, Urine WBC 0 - 2, Ur Epithelial Cells 0 - 2, Urine Bacteria Trace, Urine Other Uyeast 10/03/17 13:10: WBC 6.9 D, RBC 4.91, Hgb 11.9 L, Hct 37.4, MCV 76.2 L, MCH 24.2 L, MCHC 31.8, RDW 14.7 H, Plt Count 248, MPV 11.7 H, Gran % 45.1 L, Lymph % (Auto) 38.2 H, [place] % (Auto) 5.9, Eos % (Auto) 10.2 H, Baso % (Auto) 0.6, Gran # 3.13, Lymph # (Auto) 2.7, [place] # (Auto) 0.4, Eos # (Auto) 0.7, Baso # ( Auto) 0.04 - RAD Interpretation Narrative RAD Interpretations (Text): 10/03/17 14:27 HISTORY: RUQ pain s/p cholecystectomy 7 days ago COMPARISON: 09/23/2017 TECHNIQUE: Sonographic evaluation of the abdomen. FINDINGS: LIVER: Measures 14.8 cm. Normal echogenicity of the liver parenchyma. No mass. No intrahepatic bile duct dilatation. GALLBLADDER: Status post cholecystectomy. No abnormality is seen in the gallbladder fossa. COMMON BILE DUCT: Measures 3.9 mm. No stones. No dilatation. PANCREAS: Unremarkable as visualized. No mass. No ductal dilatation. RIGHT KIDNEY: Measures 3.8 x 10.9cm. Normal echogenicity. No calculus, mass, or hydronephrosis. LEFT KIDNEY: Measures 1.8 x 10.1cm. Normal echogenicity. No calculus, mass, or hydronephrosis. SPLEEN: Normal in size and contour. No mass. AORTA: No aneurysmal dilatation. IVC: Unremarkable. OTHER FINDINGS: None. IMPRESSION: Satisfactory postoperative status. No abnormalities in the gallbladder fossa common no free fluid in the left upper quadrant or right upper quadrant. Radiology Orders: 10/03/17 13:06 ABDOMEN COMPLETE [US] Stat Disposition/Present on Arrival - Present on Arrival Any Indicators Present on Arrival: Yes History of DVT/PE: No History of Uncontrolled Diabetes: No Urinary Catheter: No History of Decub. Ulcer: No History Surgical Site Infection Following: None - Disposition Have Diagnosis and Disposition been Completed?: Yes Diagnosis: Post-operative pain, Dysmenorrhea, unspecified Disposition: HOME/ ROUTINE Disposition Time: 14:37 Patient Plan: Discharge Condition: STABLE Discharge Instructions (ExitCare): Managing Pain After Surgery Additional Instructions: MIGUEL ANGEL ORTIZ, thank you for letting us take care of you today. Your provider was Van Goff MD and BIPIN Whitehead and you were treated for Post Operative Pain. The emergency medical care you received today was directed at your acute symptoms. If you were prescribed any medication, please fill it and take as directed. It may take several days for your symptoms to resolve. Return to the Emergency Department if your symptoms worsen, do not improve, or if you have any other problems. PLEASE CONTACT DR. ARIAS THIS WEEK FOR FOLLOW UP. IF YOU EXPERIENCE FEVER, SEVERE PAIN OR OTHER ALARMING SIGNS, RETURN TO THE EMERGENCY DEPARTMENT. TAKE THE PAIN MEDICATION THAT WAS PRESCRIBED FOR YOU. IN ADDITION YOU CAN TAKE TYLENOL 325MG EVERY 6 HRS. Please contact your doctor or call one of the physicians/clinics you have been referred to that are listed on the Patient Visit Information form that is included in your discharge packet. Bring any paperwork you were given at discharge with you along with any medications you are taking to your follow up visit. Our treatment cannot replace ongoing medical care by a primary care provider outside of the emergency department. Thank you for allowing the [facility] team to be part of your care today. If you had an X-Ray or CT scan: A Radiologist will review the ED reading if any change in treatment is needed we will contact you. If you had a blood, urine, or wound culture: It will take several days for the results, if any change in treatment is needed we will contact you. Referrals: [facility] [employer] Antwan Resari, [Primary Care Provider] - Follow up with primary Forms: [employer] (Pashto)
[2017-10-03 13:24] LABS: BASO # 0.04 K/mm3 (0.0-2.0); BASO % 0.6 % (0.0-3.0); EOS # 0.7 (0.0-0.7); EOS % 10.2 % (1.5-5.0); GRAN # 3.13 (1.4-6.5); GRAN % 45.1 % (50.0-68.0); HEMOGLOBIN 11.9 g/dL (12.0-16.0); LYMPH # 2.7 (1.2-3.4); LYMPH % 38.2 % (22.0-35.0); MEAN CELL VOLUME 76.2 fl (80.0-105.0); MEAN CORPUSCULAR HEMOGLOBIN 24.2 pg (25.0-35.0); MEAN CORPUSCULAR HGB CONC 31.8 g/dl (31.0-37.0); MEAN PLATELET VOLUME 11.7 fl (7.0-11.0); MONO # 0.4 (0.1-0.6); MONO % 5.9 % (1.0-6.0); RBC 4.91 10^6/uL (3.5-6.1); RED CELL DISTRIBUTION WIDTH 14.7 % (11.5-14.5); WHITE BLOOD COUNT 6.9 10^3/ul (4.5-11.0)
[2017-10-03 13:25] LABS: PH,URINE 6.5 (4.7-8.0); URINE BILIRUBIN NEGATIVE (NEGATIVE); URINE BLOOD LARGE (NEGATIVE); URINE GLUCOSE (UA) NEGATIVE (NEGATIVE); URINE LEUKOCYTE ESTERASE SMALL Leu/uL (NEGATIVE); URINE PROTEIN NEGATIVE mg/dL (<30 mg/dL); URINE UROBILINOGEN 0.2 E.U./dL (<1 E.U./dL)
[2017-10-03 13:26] LABS: URINE APPEARANCE CLEAR (CLEAR); URINE COLOR YELLOW (YELLOW)
[2017-10-03 13:37] LABS: URINE BACTERIA TRACE (NEG); URINE EPITHELIAL CELLS 0 - 2 /hpf (0-5); URINE RBC 0 - 2 /hpf (0-2); URINE WBC 0 - 2 /hpf (0-6)
[2017-10-03 14:08] LABS: INR 1.05 (0.93-1.08); PARTIAL THROMBOPLASTIN TIME 29.3 Seconds (25.1-36.5)
[2017-10-03 14:10] LABS: BLOOD UREA NITROGEN 12 mg/dL (7-21); GFR AFRICAN-AMERICAN > 60; GFR NON-AFRICAN AMERICAN > 60
[2017-10-03 14:11] LABS: ALB/GLOB RATIO 1.3 (1.1-1.8); ALBUMIN 4.4 g/dL (3.0-4.8); CALCIUM 9.2 mg/dL (8.4-10.5)
[2017-10-03 14:12] LABS: ALT/SGPT 147 U/L (7-56); AST/SGOT 28 U/L (14-36)
--- NOTE | 2017-10-03 14:13 | US ---
HISTORY: RUQ pain s/p cholecystectomy 7 days ago COMPARISON: 09/23/2017 TECHNIQUE: Sonographic evaluation of the abdomen. FINDINGS: LIVER: Measures 14.8 cm. Normal echogenicity of the liver parenchyma. No mass. No intrahepatic bile duct dilatation. GALLBLADDER: Status post cholecystectomy. No abnormality is seen in the gallbladder fossa. COMMON BILE DUCT: Measures 3.9 mm. No stones. No dilatation. PANCREAS: Unremarkable as visualized. No mass. No ductal dilatation. RIGHT KIDNEY: Measures 3.8 x 10.9cm. Normal echogenicity. No calculus, mass, or hydronephrosis. LEFT KIDNEY: Measures 1.8 x 10.1cm. Normal echogenicity. No calculus, mass, or hydronephrosis. SPLEEN: Normal in size and contour. No mass. AORTA: No aneurysmal dilatation. IVC: Unremarkable. OTHER FINDINGS: None. IMPRESSION: Satisfactory postoperative status. No abnormalities in the gallbladder fossa common no free fluid in the left upper quadrant or right upper quadrant.
[2017-10-03 14:57] VITALS: PULSE 88; TEMP 98.6
[2017-10-03 14:59] VITALS: BP 128/72
== END 2017-10-03 14:58 | disposition home or self-care (01) ==
LOC: ED 11:51
DX: G89.18 Other acute postprocedural pain (principal); N94.6 Dysmenorrhea, unspecified